=== PATIENT | male | born 1990 | race Caucasian/White ===

== ENCOUNTER 2020-07-30 15:47 | Outpatient (REF) | payer OTHER, MEDICAID, SELFPAY ==
--- NOTE | 2020-07-30 | US_ITS ---
EXAMINATION: US PELVIS, LIMITED/FOLLOW UP CLINICAL INFORMATION: Localized enlarged bilateral groin lymph nodes. COMPARISON: None TECHNIQUE: Limited imaging through bilateral groin was performed. FINDINGS: There are bilateral lymph nodes. Right groin lymph nodes measure 1.8 x 0.7 x 2.5 cm, 1.9 x 0.7 x 1.1 cm and 1.2 x 0.5 x 0.7 cm. A normal echogenic medulla and a normal-appearing cortex. Left groin lymph nodes measure 1.7 x 0.8 x 2.3 cm and 3.5 x 1.1 x 2.2 cm. There is normal echogenic medulla with normal-appearing cortex. US/US pelvic limited IMPRESSION: Bilateral groin lymph nodes which have benign characteristics on ultrasound. A follow up in 3-6 months can be performed.
== END 2020-07-30 15:48 | disposition home or self-care (01) ==
LOC: HO.US 15:47
PROVIDERS: Visit Provider Family Medicine
DX: R59.0 Localized enlarged lymph nodes (principal)
CPT/HCPCS: 76857

== ENCOUNTER → 2020-08-15 15:18 | Outpatient (BNVA) | payer OTHER, MEDICAID, SELFPAY | PROVIDERS: PCP Family Medicine; Visit Provider Surgery | DX: R59.0 Localized enlarged lymph nodes (principal) | CPT/HCPCS: 99202 ==

== ENCOUNTER 2020-08-27 06:22 | Day surgery (SDC) | payer OTHER, SELFPAY ==
--- NOTE | 2020-08-24 09:57 | HO.ANESPROP2 ---
Documented by User: Yasmeen Sharp 08/24/20 09:59 HPI - Anesthesia Eval Consult details Narrative: 30yo M for Lymph Node Dissection,excision left inguinal [facility] Past Medical History Medical History Elevated liver enzymes Migraines Surgical History Surgical History History of appendectomy Social History Social History Alcohol intake: former Smoking Status: Never smoker Use of substances other than those prescribed or required for medical reasons: No Advance Directives: No Advance Directives Information Provided: Yes Meds Allergies Allergy/AdvReac Type Severity Reaction Status Date / Time No Known Allergies Allergy Verified 08/15/20 16:29 Home Medications Medication Instructions Recorded Confirmed Type topiramate 1 tab PO DAILY 08/27/20 08/27/20 History Exam Exam Date and Time: August 24, 2020 0957 Assessment and Plan Assessment Anesthesia Assessment: Chart Reviewed Documented by User: Brenda Owen 08/27/20 08:11 PMFSH Past Medical History Medical History Elevated liver enzymes Migraines Family History Family history of problems with anesthesia: No Surgical History Surgical History History of appendectomy History of Problems with Anesthesia: No Social History Social History Alcohol intake: former Smoking Status: Never smoker Use of substances other than those prescribed or required for medical reasons: No Advance Directives: No Advance Directives Information Provided: Yes Meds Allergies Allergy/AdvReac Type Severity Reaction Status Date / Time No Known Allergies Allergy Verified 08/15/20 16:29 Home Medications Medication Instructions Recorded Confirmed Type topiramate 1 tab PO DAILY 08/27/20 08/27/20 History Exam Height,Weight and Vital Signs: Vital Signs Temp Pulse Resp BP Pulse Ox 08/27/20 06:43 97.9 F 71 20 139/84 99 Airway Mallampati Class: II TM Dist: >3cm Neck ROM: Full Loose/Missing/Broken Teeth: No Heart: RRR ?Systolic murmur Lungs: CTAB Assessment and Plan Assessment Anesthesia Assessment: Anesthesia Plan Discussed and Chart Reviewed Final Anesthetic Review NPO: Yes ASA Class: II Final Preanesthetic Review: No Changes in Pt Med Stat, Meds/Allgs Chart Reviewed, Consent Obtained/Reviewed and Anes Risks/Benef Reviewed Patient Risk: Low Procedure Risk: Low Assessment/Block/Sedation in SS: Assess/Block/Sedation-SS Anesthetic Plan Anesthetic Plan: GA (Patient preference) Disposition: Standard PACU Documented by User: Jorge Payton CRNA 08/27/20 08:09 PMFSH Past Medical History Medical History Elevated liver enzymes Migraines Surgical History Surgical History History of appendectomy Social History Social History Alcohol intake: former Smoking Status: Never smoker Use of substances other than those prescribed or required for medical reasons: No Advance Directives: No Advance Directives Information Provided: Yes Meds Allergies Allergy/AdvReac Type Severity Reaction Status Date / Time No Known Allergies Allergy Verified 08/15/20 16:29 Home Medications Medication Instructions Recorded Confirmed Type topiramate 1 tab PO DAILY 08/27/20 08/27/20 History Assessment and Plan Assessment Anesthesia Assessment: Anesthesia Plan Discussed and Chart Reviewed Final Anesthetic Review NPO: Yes ASA Class: II Final Preanesthetic Review: No Changes in Pt Med Stat, Meds/Allgs Chart Reviewed, Consent Obtained/Reviewed and Anes Risks/Benef Reviewed Patient Risk: Low Procedure Risk: Low Anesthetic Plan Anesthetic Plan: GA Disposition: Standard PACU
[2020-08-27] VITALS (7 sets, daily range): BP systolic 106–139; BP diastolic 67–84; PULSE 70–81; RESP 16–20; TEMP 36.5–36.6; O2SAT 97–99; BMI 29.0
[2020-08-27] MEDS: ceFAZolin Sodium/Dextrose,Iso 2 GM/50 ML PIGGYBACK IV (07:00)
[2020-08-27] MEDS: Lactated Ringers 1,000 ML 100 ML IVCONT (07:00)
--- NOTE | 2020-08-27 07:31 | MHC.SHP ---
Pre-Procedural Eval Section A The patient is an INPATIENT: No Changes since office visit: Yes Patient answered all questions; No Cold of Flu in the past 2 weeks, No New Medical Problems and No Changes in Medication The History & Physical has been completed within 30 days and I have reviewed it.: Yes Section B Chief Complaint: lymphadenopathy inguinal Allergies: Allergies Allergy/AdvReac Type Severity Reaction Status Date / Time No Known Allergies Allergy Verified 08/15/20 16:29 Plan Diagnosis/Plan: Unchanged I have reviewed the history and physical and performed a pertinent physical examination on my patient. No changes have occurred unless specified.
--- NOTE | 2020-08-27 08:42 | PM.OP ---
Brief Operative Note Date of Service: 08/27/20 Pre-op diagnosis: Inguinal lymphadenopathu Post-op diagnosis: same Procedure: Left inguinal lymph node biopsy Implants: none Surgeon: Solomon Pinzon MD Anesthesia: GLMA Direct Marketing Coordinator: Nel Henry Estimated blood loss (mL): 5 Pathology: other (left inguinal lymph node) Condition: stable Disposition: PACU
--- NOTE | 2020-08-27 08:43 | P.OP_ITS ---
Operative Note Operative Note Date of Service: 08/27/20 Narrative: Preoperative diagnosis: Inguinal lymphadenopathy Postoperative diagnosis: same Procedure: Left Inguinal Lymph node Excision Surgeon: Solomon Pinzon MD Drywall Stripper: Nel Henry PA-C Anesthesia: General Indications for procedure: 30-year-old male patient presenting with bilateral inguinal lymphadenopathy of 1 month duration. Lymph nodes appear to be increasing in size over this time. Ultrasound of the pelvis indicated bilateral inguinal lymphadenopathy the largest being on the left side. Operative findings: Patient was found to have multiple enlarged lymph nodes in the left inguinal region. Specimen: Left inguinal lymph node EBL: 5 mL Condition: stable Procedure details: Patient was brought to the OR placed in a supine position. After administering general anesthesia the patient's inguinal region was prepped with ChloraPrep and draped in a sterile fashion. A surgical time-out was called the consent confirmed. Patient received preoperative antibiotics and Venodyne boots were in place. Local anesthesia consisting of 0.75% Sensorcaine was infiltrated in the left inguinal region. A 2 cm incision was made directly over the palpable lymph node carried out through subcutaneous tissue. A combination of sharp and blunt dissection was then used to dissect around the enlarged lymph node. Electrocautery was used to dissect lymphatic vessels. Feeding vessels were also ligated with 3-0 Polysorb suture. With the nose completely excised it was sent to pathology for further examination. Wounds were then checked for hemostasis well at cautery. Wounds were then irrigated with saline solution and suctioned dry. Deep fascial tissue was closed using interrupted 3 0 Polysorb sutures. Dermis was reapproximated using interrupted 3-0 Polysorb sutures. Skin was then closed using a running subcuticular 4 0 Polysorb suture. Steri- Strips 2 x 2 gauze and Tegaderm were then applied. The patient tolerated the procedure well. Sponge, instrument, needle counts reported as correct. Patient was transferred to PACU in stable condition.
--- NOTE | 2020-08-27 10:02 | HO.POSTANES ---
Post Anesthesia Evaluation Post Anesthesia Evaluation Vital Signs: Vital Signs Temp Pulse Resp BP Pulse Ox 08/27/20 09:30 97.7 F 78 18 124/77 99 08/27/20 09:15 77 18 110/67 99 08/27/20 09:00 70 18 126/75 97 08/27/20 08:55 71 16 106/72 99 08/27/20 08:50 79 18 124/76 98 08/27/20 08:45 97.7 F 81 16 129/83 98 08/27/20 06:43 97.9 F 71 20 139/84 99 Anesthesia: General LMA Mental Status: Awake Pain Control: Satisfactory Nausea/Vomiting: None Hydration: Adequate Anesthesia-Related Issues: No Anes. Related Issues
== END 2020-08-27 23:59 | disposition home or self-care (01) ==
PROVIDERS: PCP Family Medicine; Visit Provider Surgery
PROC: (CPT 38531; principal; 2020-08-27 08:00)
DX: R59.0 Localized enlarged lymph nodes (principal); R74.8 Abnormal levels of other serum enzymes
CPT/HCPCS: 38531; 36415; 88305; 88341; 88342; 88365; J0690; J1100; J2250; J2405; J3010

== ENCOUNTER → 2020-09-04 14:00 | Outpatient (BNVA) | payer OTHER, SELFPAY | PROVIDERS: PCP Family Medicine; Visit Provider Surgery | DX: R59.0 Localized enlarged lymph nodes (principal) | CPT/HCPCS: 99212 ==

== ENCOUNTER 2020-09-05 09:35 | Outpatient (REF) | payer OTHER, SELFPAY ==
[2020-09-05 09:50] LABS: MANUAL DIFF FLAG NO
[2020-09-05 09:54] LABS: Basophils Absolute Auto 0.1 X10*3/uL (0.0-0.2); Basophils Percent Auto 0.7 % (0-2); Eosinophils Absolute Auto 0.3 X10*3/uL (0.0-0.4); Hematocrit 44.7 % (42-52); Hemoglobin 15.1 g/dl (14.0-18.0); Imm Gran Abs Auto 0.13 X10*3/uL (0.00-0.03); Imm Gran Pct Auto 1.3 % (0.0-0.4); Lymphocytes Absolute Auto 2.7 X10*3/uL (1.2-4.9); Lymphocytes Percent Auto 27.4 % (20-40); Mean Corpuscular HGB Conc 33.8 g/dl (31.0-36.0); Mean Corpuscular Hemoglobin 28.5 pg (27.0-33.0); Mean Corpuscular Volume 84.5 fL (80-98); Mean Platelet Volume 9.7 fL (9.4-12.4); Monocytes Absolute Auto 1.1 X10*3/uL (0.1-1.2); Monocytes Percent Auto 11.4 % (2-11); Neutrophils Absolute Auto 5.6 X10*3/uL (2.0-8.3); Neutrophils Percent Auto 56.2 % (45-73); Platelet Count 307 X10*3/uL (160-400); Red Blood Count 5.29 X10*6/uL (4.60-5.80); Red Cell Distribution Width 12.9 % (11.0-16.0)
[2020-09-05 10:22] LABS: Alanine Aminotransferase 45 U/L (0-40); Albumin Level 4.4 g/dL (3.5-5.0); Alkaline Phosphatase 116 U/L (39-117); Anion Gap 13 (12-20); Aspartate Amino Transferase 23 U/L (5-37); Bilirubin Direct 0.2 mg/dL (0.0-0.5); Bilirubin Total 0.6 mg/dL (0.0-1.0); Blood Urea Nitrogen 15 mg/dL (9-16); Carbon Dioxide 21 mmol/L (22-29); Chloride 109 mmol/L (96-108); Cholesterol 170 mg/dL; Estimated Glomerular Filt Rate > 60; Glucose Random 97 mg/dL (60-115); HDL Cholesterol 35 mg/dL; LDL Cholesterol Calculated 100 mg/dl; Potassium 4.1 mmol/l (3.3-5.1); Sodium 139 mmol/L (135-145); Total Protein 6.9 g/dL (6.5-8.0); Triglycerides 179 mg/dL
== END 2020-09-05 09:36 | disposition home or self-care (01) ==
LOC: HO.LAB 09:35
PROVIDERS: PCP Family Medicine; Visit Provider Family Medicine
DX: E78.5 Hyperlipidemia, unspecified (principal); R59.9 Enlarged lymph nodes, unspecified; R79.89 Other specified abnormal findings of blood chemistry
CPT/HCPCS: 36415; 80048; 80061; 80076; 85025

== ENCOUNTER → 2021-05-16 10:23 | Outpatient (BNVA) | payer OTHER, SELFPAY | PROVIDERS: Visit Provider Orthopaedic Surgery | DX: M25.561 Pain in right knee (principal); M25.562 Pain in left knee | CPT/HCPCS: 99202 ==

== ENCOUNTER 2021-07-03 18:47 | Emergency (ER) | payer OTHER, SELFPAY ==
[2021-07-03 18:56] VITALS: BP 137/90; PULSE 106; RESP 18; TEMP 37.2; O2SAT 99; BMI 28.2
[2021-07-03 19:20] LABS: IDNOW Serial# 9DD0AD1C; Strep A Nucleic Acid Negative (Negative)
[2021-07-03 19:22] LABS: COVID-19 Test Negative (Negative)
--- NOTE | 2021-07-03 20:15 | ED.URI ---
HPI - URI/Sore Throat General Chief Complaint: Upper Respiratory Symptoms Stated Complaint: Sore throat, hand pains Time Seen by Provider: 07/03/21 20:10 Source: patient Mode of arrival: ambulatory Limitations: no limitations History of Present Illness HPI Narrative: 31 y/o male presenting with sore throat for the last 2 days. He reports pain with swallowing. He also reports wrist pain bilaterally. He reports a history of joint swelling and pain in association with strep throat about 5 years ago that required hospitalization, IV steroids and IV antibiotics. He reports he has been followed by [facility] infectious disease and has required intramuscular penicillin every month for the last 5 years. His last dose of IM penicillin was in April of this year. He has not had any fever, chills, nausea, vomiting, cough, shortness of breath. He has been able to eat and drink normally however it hurts. He has not called his infectious disease doctor with his complaints. 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) Onset (ago): day(s) (2) Consistency: constant Severity: moderate Pain scale (0-10): 6 Able to tolerate fluids by mouth: Yes Exacerbating factors: swallowing Relieving factors: nothing Associated symptoms: other (Arthralgias) Treatments prior to arrival: none Related Data Home Medications Medication Instructions Recorded Confirmed acetaminophen 650 mg 1 tab PO Q8H PRN 11/05/20 06/11/21 tablet,extended release (Mapap Arthritis Pain) ergocalciferol (vitamin D2) 1,250 1 cap PO QWEEK 11/05/20 06/11/21 mcg (50,000 unit) capsule amitriptyline 25 mg tablet 1 tab PO BEDTIME 06/11/21 06/11/21 melatonin 5 mg tablet 5 mg PO BEDTIME PRN 06/11/21 06/11/21 Previous Rx's Medication Instructions Recorded prednisone 10 mg tablets in a dose 10 mg PO DAILY #48 ea 07/03/21 pack Allergies Allergy/AdvReac Type Severity Reaction Status Date / Time No Known Allergies Allergy Verified 06/11/21 10:01 Review of Systems Review of Systems: Constitutional: No Fever, No Chills ENT/Mouth: + sore throat, No Rhinorrhea, No Swallowing Difficulty, +Pain with swallowing Cardiovascular: No Chest Pain, No SOB, No Orthopnea, No Edema Respiratory: No Cough, No Sputum, No Wheezing, No dyspnea Gastrointestinal: No Nausea, No Vomiting, No Diarrhea, No abdominal Pain Musculoskeletal: + joint pain, No Myalgias Skin: No Skin Lesions, No rash Neuro: No Weakness, No Numbness, No Dizziness, No Headache Heme/Lymph: No Bruising, No Lymphadenopathy PMFSH Past Medical History Medical History (Updated 07/03/21 @ 20:50 by TOY Warren) Chronic GERD Dyslipidemia Elevated liver enzymes Genital herpes Migraines Rheumatic fever Rheumatic fever with cardiac involvement Surgical History History of appendectomy Hx of lymph node excision Family History Family History Maternal Grandfather Cancer Maternal Grandmother Diabetes HTN (hypertension) Social History Social History Alcohol intake: former Advance Directives: No Advance Directives Information Provided: No Current occupational status: employed 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 Oriented X3. No acute distress. Eyes: Pupils equal, round and reactive to light. ENT: Pharynx with moderate to severe posterior pharyngeal erythema, mild bilateral tonsillar enlargement without exudate. Uvula is midline. Normal voice handling secretions normally. Normal tympanic membranes bilaterally. Neck: Normal inspection. Right-sided submandibular lymphadenopathy palpable. Tender. Trachea midline. CVS: Normal heart rate and rhythm. Pulses normal. Respiratory: No respiratory distress. Breath sounds normal. Skin: Skin warm and dry. Normal skin color. Normal skin turgor. No rashes. Extremities: No lower extremity edema. Normal inspection of the upper extremities, normal inspection of the wrist bilaterally with no tenderness or swelling noted. No erythema or warmth. Neuro: Oriented X 3. Grossly normal, nonfocal Course Course Course Narrative: 31-year-old male with a history of what sounds like post streptococcal reactive arthritis requiring intramuscular PCN x5 years coming in today with sore throat and bilateral wrist pain. His throat is erythematous and inflamed. No tonsillar exudates with uvula midline and no evidence of peritonsillar abscess. His strep test was negative. His COVID-19 test was negative. Given his extensive history infectious Disease Dr. Carson was contacted - she is recommending IM PCM 2.4 million units now and d/c with oral steroids. He will follow up with his infectious disease doctor on Thursday. Stable for d/c home with close outpatient follow up. Consultations Consultation #1: ID - Dr. Carson MDM - URI/Sore Throat Lab Data Labs: Lab Results 07/03/21 07/03/21 Range/Units 19:02 19:02 COVID-19 (TATA) Negative (Negative) COVID-19 Clin Com See Note S. pyogenes GrpA SHANON Negative (Negative) Critical Care Time Critical Care Time Critical Care Time: No Discharge Plan Discharge Clinical Impression: Pharyngitis Qualifiers: Pharyngitis/tonsillitis etiology: unspecified etiology Qualified Code(s): J02.9 - Acute pharyngitis, unspecified Patient Disposition: Home, Self-Care Instructions: Pharyngitis (ED) Additional Instructions: You were negative for COVID-19 and strep throat today. Given her history your given intramuscular doses of penicillin. Your also given a dose of oral prednisone in the emergency room, additional steroids were sent to your pharmacy, please take as directed. Follow-up with your infectious disease doctor on Thursday. Recommend [id number] Chloraseptic spray or septic all lozenges as needed for sore throat. Use warm saltwater gargles several times per day. Rest and stay hydrated, drink plenty of water. If you develop new or worsening symptoms call 911 or come back to the ER for further evaluation. Prescriptions: New prednisone 10 mg tablets,dose pack 10 mg PO DAILY Qty: 48 RF: 0 No Action acetaminophen [Mapap Arthritis Pain] 650 mg tablet extended release 1 tab PO Q8H PRN (Reason: fever) RF: 0 ergocalciferol (vitamin D2) 1,250 mcg (50,000 unit) capsule 1 cap PO QWEEK RF: 0 amitriptyline 25 mg tablet 1 tab PO BEDTIME RF: 0 melatonin 5 mg Tablet 5 mg PO BEDTIME PRN (Reason: Insomnia) RF: 0
[2021-07-03] MEDS: predniSONE 10 MG TABLET 50 MG PO (21:18)
[2021-07-03] MEDS: Penicillin G Benzathine 2,400,000 UNIT/4 ML SYRINGE 2400000 UNIT IM (21:19)
[2021-07-03 21:30] VITALS: BP 129/71; PULSE 97; RESP 18; TEMP 37.2; O2SAT 99
== END 2021-07-03 21:33 | disposition home or self-care (01) ==
PROVIDERS: Emergency Provider Student in an Organized Health Care Education/Training Program; PCP Family Medicine
DX: J02.9 Acute pharyngitis, unspecified (principal); Z20.822 Contact with and (suspected) exposure to COVID-19; M25.532 Pain in left wrist; M25.531 Pain in right wrist
CPT/HCPCS: 36415; 87635; 87651; 99284; J0561

== ENCOUNTER 2021-08-17 21:02 | Emergency (ER) | payer OTHER, SELFPAY ==
[2021-08-17 21:33] VITALS: BP 132/88; PULSE 98; RESP 18; TEMP 37.5; O2SAT 100; BMI 29.5
[2021-08-17 22:05] LABS: COVID-19 Test Positive (Negative)
[2021-08-17 22:29] VITALS: BP 136/94; PULSE 90; RESP 16; O2SAT 98
--- NOTE | 2021-08-17 22:44 | ED.GENADULT ---
HPI - General Adult General Chief complaint: General Medical Stated complaint: swollen glands ,dry cough Time Seen by Provider: 08/17/21 22:44 Source: patient Mode of arrival: ambulatory Limitations: no limitations History of Present Illness HPI narrative: 31-year-old male came in for evaluation of dry coughing, scratchy throat, subjective fever, generalized body ache. Patient received 2 Moderna vaccination in the past, no definitive exposure to sick contact. Patient tested positive in the emergency department for COVID. Related Data Home Medications Medication Instructions Recorded Confirmed acetaminophen 650 mg 1 tab PO Q8H PRN 11/05/20 06/11/21 tablet,extended release (Mapap Arthritis Pain) ergocalciferol (vitamin D2) 1,250 1 cap PO QWEEK 11/05/20 06/11/21 mcg (50,000 unit) capsule amitriptyline 25 mg tablet 1 tab PO BEDTIME 06/11/21 06/11/21 melatonin 5 mg tablet 5 mg PO BEDTIME PRN 06/11/21 06/11/21 Previous Rx's Medication Instructions Recorded prednisone 10 mg tablets in a dose 10 mg PO DAILY #48 ea 07/03/21 pack Allergies Allergy/AdvReac Type Severity Reaction Status Date / Time No Known Allergies Allergy Verified 08/17/21 21:33 Review of Systems Review of Systems: All other systems are reviewed and are negative Constitutional: Reports as per HPI and Reports no additional constitutional complaints Eyes: Reports as per HPI and Reports no additional eye complaints Reports system reviewed and no additional complaints, except as documented Cardiovascular: Reports as per HPI and Reports no additional cardiovascular complaints Respiratory: Reports as per HPI and Reports no additional respiratory complaints Gastrointestinal: Reports as per HPI and Reports no additional gastrointestinal complaints Genitourinary: Reports no additional female genitourinary complaints Musculoskeletal: Reports no additional musculoskeletal complaints Skin/Breast: Reports system reviewed and no additional complaints, except as docu Psychiatric: Reports no additional psychiatric complaints Endocrine: Reports no additional endocrine complaints Hematologic/Lymphatic: Reports no additional hematologic/lymphatic complaints Allergic/Immunologic: Reports no additional allergic/immunologic complaints Reports system reviewed and no additional complaints, except as documented and Reports Abnormal speech present [facility] Past Medical History Medical History Chronic GERD Dyslipidemia Elevated liver enzymes Genital herpes Migraines Rheumatic fever Rheumatic fever with cardiac involvement Surgical History History of appendectomy Hx of lymph node excision Family History Family History Maternal Grandfather Cancer Maternal Grandmother Diabetes HTN (hypertension) Social History Social History Alcohol intake: former Advance Directives: No Advance Directives Information Provided: No Current occupational status: employed 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 Blood pressure normal. Heart rate normal. Respiration rate normal. Temperature normal. Oxygen saturation normal. Appearance: Alert. Oriented X3. No acute distress. Head: Normal external exam. Normocephalic. Atraumatic. No Bran signs noted. No raccoon eyes noted Eyes: PERRLA. EOMI. Conjunctiva and sclera normal. Eyelids normal. ENT: TM's Normal. Pharynx normal. Uvula midline. Moist mucous membranes. No trismus noted. No drooling noted. No muffled voice noted. Neck: Normal inspection. Neck supple. FROM. No adenopathy. Thyroid Normal. No meningeal signs. No neck mass noted. CVS: Normal heart rate and rhythm. Heart sound normal. No murmurs noted. Pulses normal throughout. Respiratory: No respiratory distress. Painless inspiration. Breath sounds normal. No wheezes/rales/rhonchi noted. Chest nontender. No accessory muscle usage noted or decreased air movement noted. Abdomen: Soft and nontender. Bowel sounds normal in all 4 quadrants. No distention noted. No organomegaly noted. No visible injury noted. Back: No CVA tenderness. Full range of motion noted. Skin: Skin warm and dry. Normal skin color. Normal skin turgor. No rashes/lesions/lacerations noted. Extremities: No lower extremity edema. Extremities exhibit normal range of motion. Extremities nontender. Neuro: Oriented X 3. Cranial nerve exam: II-XII are grossly intact No motor deficit. No sensory deficit. Reflexes normal. Course Course Course Narrative: Assessment and plan. 31-year-old male otherwise healthy came in was COVID symptoms and patient tested positive for COVID, continue self quarantine for another 10 days, continue with facemask, continuous social distancing, and frequent hand washing. Medical Decision Making Lab Data Lab results reviewed: Yes I reviewed the patient's lab results. Labs: Lab Results 08/17/21 Range/Units 21:40 COVID-19 (TAAT) Positive A (Negative) COVID-19 Clin Com See Note Discharge Plan Discharge Clinical Impression: COVID-19 virus infection Patient Disposition: Home, Self-Care Instructions: COVID-19 (Coronavirus Disease 2019) (ED) Additional Instructions: Continue self quarantine for 10 days, frequent handwashing, continue wearing face mask at all times, keep was social distancing. Prescriptions: No Action acetaminophen [Mapap Arthritis Pain] 650 mg tablet extended release 1 tab PO Q8H PRN (Reason: fever) RF: 0 ergocalciferol (vitamin D2) 1,250 mcg (50,000 unit) capsule 1 cap PO QWEEK RF: 0 amitriptyline 25 mg tablet 1 tab PO BEDTIME RF: 0 melatonin 5 mg Tablet 5 mg PO BEDTIME PRN (Reason: Insomnia) RF: 0 prednisone 10 mg tablets,dose pack 10 mg PO DAILY Qty: 48 RF: 0 Stand Alone Forms: Work/School Release
== END 2021-08-17 23:22 | disposition home or self-care (01) ==
PROVIDERS: Emergency Provider Emergency Medicine; PCP Family Medicine
DX: U07.1 COVID-19 (principal)
CPT/HCPCS: 87635; 99283; 99284

== ENCOUNTER 2021-09-16 18:41 | Emergency (ER) | payer OTHER, SELFPAY ==
[2021-09-16 19:31] VITALS: BP 156/94; PULSE 110; RESP 19; TEMP 37.2; O2SAT 99; BMI 29.0
[2021-09-16 20:30] LABS: COVID-19 Test Negative (Negative); IDNOW Serial# 55D5AD1C
[2021-09-16 22:05] VITALS: BP 157/92; PULSE 108; RESP 18; O2SAT 100
[2021-09-16] MEDS: Ibuprofen 800 MG TABLET PO (22:14)
--- NOTE | 2021-09-16 22:16 | ED.GENADULT ---
HPI - General Adult General Chief complaint: General Medical Stated complaint: continuous headache, runny nose, cough Time Seen by Provider: 09/16/21 22:08 Source: patient Mode of arrival: ambulatory Limitations: no limitations History of Present Illness HPI narrative: 31-YEAR-OLD MALE PRESENTS TO ED FOR COUGHING, HEADACHE, RUNNY NOSE FOR THE PAST 3 DAYS. PATIENT DENIES ANY CHEST PAIN OR SHORTNESS OF BREATH. PATIENT STATES RECEIVED 2 DOSES MODERNA VACCINE BUT NO BOOSTER. PATIENT STATES HE MIGHT HAVE EXPOSED TO COVID AT WORK. PATIENT STATES NO ONE ELSE AT HOME SICK. Related Data Home Medications Medication Instructions Recorded Confirmed acetaminophen 650 mg 1 tab PO Q8H PRN 11/05/20 06/11/21 tablet,extended release (Mapap Arthritis Pain) ergocalciferol (vitamin D2) 1,250 1 cap PO QWEEK 11/05/20 06/11/21 mcg (50,000 unit) capsule amitriptyline 25 mg tablet 1 tab PO BEDTIME 06/11/21 06/11/21 melatonin 5 mg tablet 5 mg PO BEDTIME PRN 06/11/21 06/11/21 Previous Rx's Medication Instructions Recorded prednisone 10 mg tablets in a dose 10 mg PO DAILY #48 ea 07/03/21 pack Allergies Allergy/AdvReac Type Severity Reaction Status Date / Time No Known Allergies Allergy Verified 09/16/21 19:31 Review of Systems Review of Systems: COUGHING, HEADACHE, RUNNY NOSE Yes all other systems are reviewed and are negative PMFSH Past Medical History Medical History Chronic GERD Dyslipidemia Elevated liver enzymes Genital herpes Migraines Rheumatic fever Rheumatic fever with cardiac involvement Surgical History History of appendectomy Hx of lymph node excision Family History Family History Maternal Grandfather Cancer Maternal Grandmother Diabetes HTN (hypertension) Social History Social History Alcohol intake: former Advance Directives: No Advance Directives Information Provided: Yes Current occupational status: employed 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 Physical Exam Vital Signs: Vital Signs: Last Vital Signs Temp 98.9 F 09/16/21 19:31 Pulse 108 H 09/16/21 22:05 Resp 18 09/16/21 22:05 BP 157/92 H 09/16/21 22:05 Pulse Ox 100 09/16/21 22:05 BMI result Body Mass Index 29.0 Const: General: cooperative, healthy appearing, comfortable, no acute distress, well developed, alert, awake and Physically active Orientation/consciousness: patient oriented x3 HENMT: Head: Yes normal to inspection, Yes No palpable skull fracture present, Yes normocephalic, Yes atraumatic and No abrasion Eyes: General: appearance normal, both eyes and all related structures Neck: Neck: Yes normal visual inspection, Yes full ROM, Yes no lymphadenopathy, Yes no meningeal signs, Yes trachea midline, Yes supple, No anterior neck swelling and No tender Chest: Chest palpation & inspection: normal inspection of the chest and normal palpation of entire chest wall Resp: Effort & Inspection: normal respiratory effort and able to speak in complete sentences Auscultation: clear to auscultation bilaterally Cardio: Jugular venous distension: no JVD Heart sounds: S1 normal heart sound present and S2 normal heart sound present GI: Inspection: Yes normal to inspection and No abdominal wall ecchymosis Palpation (GI): Soft to palpation, not firm, nontender, no guarding and not rigid : General: No CVA tenderness and Yes no CVA tenderness Back/Spine/Pelvis: Back: no CVA tenderness, No CVA tenderness and No back tenderness Skin: General skin exam: no rashes or lesions noted and elasticity normal Neuro: General: patient oriented x3, gait normal, no meningeal signs and CN's II-XI intact bilaterally Cranial nerves: Yes CN's II-XII intact bilaterally Extrem: General: Yes normal to inspection and Yes full ROM Psych: Appearance: grossly normal, well kempt and not disheveled Course Course Course Narrative: PATIENT IS SWABBED FOR COVID. Reevaluation(s) Reevaluation #1: NOT SUSPECTING MENINGITIS. SYMPTOMS URI. COVID NEGATIVE. THIS MAY BE FALSE NEGATIVE. PATIENT INFORMED TO GET RETESTED IN 5 DAYS. Time: 22:42 Medical Decision Making [facility] Narrative Medical decision making narrative: URI SYMPTOMS Lab Data Labs: Lab Results 09/16/21 Range/Units 19:35 COVID-19 ([facility]) Negative (Negative) COVID-19 Clin Com See Note Discharge Plan Discharge Clinical Impression: URI (upper respiratory infection), Acute viral syndrome Patient Disposition: Home, Self-Care Instructions: Upper Respiratory Infection (DC), Viral Syndrome (ED) Additional Instructions: YOUR COVID SWAB CAME BACK NEGATIVE. THIS MAY BE A FALSE-NEGATIVE AND YOU WILL NEED TO BE RETESTED IN 5 DAYS. RETURN TO THE ED IMMEDIATELY FOR DIZZINESS, NECK STIFFNESS, INTRACTABLE FEVER, NAUSEA, VOMITING, WEAKNESS, CHILLS, ABDOMINAL PAIN, CHEST PAIN, SHORTNESS OF BREATH, OR ANY OTHER CONCERNING SYMPTOMS. YOUR BLOOD PRESSURE WAS SLIGHTLLY ELEVATED DURING THE ED VISIT YOU SHOULD FOLLOW-UP WITH PRIMARY CARE PROVIDER IN REGARDS TO YOUR BLOOD PRESSURE. Prescriptions: No Action acetaminophen [Mapap Arthritis Pain] 650 mg tablet extended release 1 tab PO Q8H PRN (Reason: fever) 0RF ergocalciferol (vitamin D2) 1,250 mcg (50,000 unit) capsule 1 cap PO QWEEK 0RF amitriptyline 25 mg tablet 1 tab PO BEDTIME 0RF melatonin 5 mg Tablet 5 mg PO BEDTIME PRN (Reason: Insomnia) 0RF prednisone 10 mg tablets,dose pack 10 mg PO DAILY Qty: 48 0RF Rx Instructions: Take 4 tabs x4 days, then 3 tabs x4 days, then 2 tabs x4 days, then 1 tab x4 days. Discard remainder Stand Alone Forms: Work/School Release Interventions: ED Discharge Assessment Last Done: 09/16/21 23:00 Discharge Date/Time: 09/16/21 23:00 Print Language: Kiswahili
== END 2021-09-16 23:00 | disposition home or self-care (01) ==
PROVIDERS: Emergency Provider Internal Medicine
DX: J06.9 Acute upper respiratory infection, unspecified (principal); B34.9 Viral infection, unspecified; Z20.822 Contact with and (suspected) exposure to COVID-19; R51.9 Headache, unspecified
CPT/HCPCS: 87635; 99283; 99284

== ENCOUNTER 2022-08-25 15:54 | Emergency (ER) | payer OTHER, SELFPAY ==
--- NOTE | 2022-08-25 16:26 | ED.GENADULT ---
HPI - General Adult General Chief complaint: Upper Respiratory Symptoms <TOY Huerta Last Filed: 08/25/22 19:47> Stated complaint: fever,dizziness,cough <TOY Huerta Last Filed: 08/25/22 19:47> Time Seen by Provider: 08/25/22 16:50 <TOY Huerta Last Filed: 08/25/22 19:47> Source: patient <TOY Ellington Last Filed: 08/26/22 08:30> Mode of arrival: ambulatory <TOY Ellington Last Filed: 08/26/22 08:30> Limitations: no limitations <TOY Ellington Last Filed: 08/26/22 08:30> History of Present Illness HPI narrative: Patient is a 32 year old assigned male at with no reported medical history presenting to the emergency department today with a sore throat. Patient states that there is a sick child at home and ever since he has had a sore throat. Patient denies any dizziness, lightheadedness, abdominal pain, nausea, vomiting, fever, chills, blurry vision, double vision, loss of vision, chest pain, difficulty breathing, shortness of breath, back pain, night sweats, pain with urination, increased urinary frequency, increased urinary urgency, blood in his urine or stool, syncope or a near syncopal episode, recent trauma or falls, bowel incontinence, bladder incontinence, bowel retention, bladder retention, or any other complaints at this time. <TOY Ellington - Last Filed: 08/26/22 08:30> Onset (ago): day(s) <TOY Ellington Last Filed: 08/26/22 08:30> Severity: mild <TOY Ellington Last Filed: 08/26/22 08:30> Severity scale (1-10): 2 <TOY Ellington Last Filed: 08/26/22 08:30> Pain Consistency: constant <TOY Ellington Last Filed: 08/26/22 08:30> Relieving factors: none <TOY Ellington Last Filed: 08/26/22 08:30> Exacerbating factors: none <TOY Ellington Last Filed: 08/26/22 08:30> Associated symptoms: denies other symptoms <TOY Ellnigton - Last Filed: 08/26/22 08:30> Treatments prior to arrival: none <TOY Ellington - Last Filed: 08/26/22 08:30> Related Data Home medications: Home Medications Medication Instructions Recorded Confirmed acetaminophen 650 mg 1 tab PO Q8H PRN fever 11/05/20 06/11/21 tablet,extended release (Mapap Arthritis Pain) ergocalciferol (vitamin D2) 1,250 1 cap PO QWEEK 11/05/20 06/11/21 mcg (50,000 unit) capsule amitriptyline 25 mg tablet 1 tab PO BEDTIME 06/11/21 06/11/21 melatonin 5 mg tablet 5 mg PO BEDTIME PRN Insomnia 06/11/21 06/11/21 Previous Rx's Medication Instructions Recorded prednisone 10 mg tablets in a dose 10 mg PO DAILY #48 ea 07/03/21 pack lidocaine HCl 2 % mucosal solution 1.2 ml PO BID PRN pain #100 mL 08/25/22 (Lidocaine Viscous) <TOY Huerta - Last Filed: 08/25/22 19:47> Allergies/adverse reactions: Allergies Allergy/AdvReac Type Severity Reaction Status Date / Time No Known Allergies Allergy Verified 09/16/21 19:31 <TOY Huerta - Last Filed: 08/25/22 19:47> Review of Systems Constitutional: Constitutional: Reports no additional constitutional complaints, Denies chills, Denies fever(s) and Denies night sweats <TOY Ellington - Last Filed: 08/26/22 08:30> Eyes: Eyes: Reports no additional eye complaints, Denies blurry vision, Denies change in vision, Denies diplopia, Denies eye discharge, Denies loss of vision and Denies eye pain <TOY Ellington - Last Filed: 08/26/22 08:30> ENT: Denies dizziness and Reports sore throat <TOY Ellington Last Filed: 08/26/22 08:30> Cardiovascular: Cardiovascular: Reports no additional cardiovascular complaints, Denies chest pain, Denies lightheadedness, Denies Loss of Consciousness and Denies dyspnea <TOY Ellington - Last Filed: 08/26/22 08:30> Respiratory: Respiratory: Reports no additional respiratory complaints and Denies dyspnea <TOY Ellington - Last Filed: 08/26/22 08:30> Gastrointestinal: Gastrointestinal: Reports no additional gastrointestinal complaints, Denies abdominal pain, Denies melena, Denies hematochezia, Denies change in bowel habits and Denies change in stool character <TOY Ellington - Last Filed: 08/26/22 08:30> Genitourinary: Genitourinary: Reports no additional male genitourinary complaints, Denies hematuria, Denies oliguria, Denies difficulty urinating, Denies dysuria, Denies urinary frequency, Denies urinary hesitancy, Denies urinary incontinence and Denies urinary urgency <TOY Ellington - Last Filed: 08/26/22 08:30> Musculoskeletal: Musculoskeletal: Reports no additional musculoskeletal complaints, Denies numbness and Denies tingling <TOY Ellington - Last Filed: 08/26/22 08:30> Neurologic: Denies dizziness, Denies loss of vision, Denies numbness and Denies tingling <TOY Ellington - Last Filed: 08/26/22 08:30> Psychiatric: Psychiatric: Reports no additional psychiatric complaints <TOY Ellington - Last Filed: 08/26/22 08:30> Endocrine: Endocrine: Reports no additional endocrine complaints <TOY Ellington - Last Filed: 08/26/22 08:30> Hematologic/Lymphatic: Hematologic/Lymphatic: Reports no additional hematologic/lymphatic complaints <TOY Ellington - Last Filed: 08/26/22 08:30> Allergic/Immunologic: Allergic/Immunologic: Reports no additional allergic/immunologic complaints <TOY Ellington - Last Filed: 08/26/22 08:30> PMFSH Past Medical History Attestation statement: The following information was validated with the patient. <TOY Ellington Last Filed: 08/26/22 08:30> Source: old records reviewed and nursing notes reviewed <TOY Ellington - Last Filed: 08/26/22 08:30> Medical History: Medical History Chronic GERD Dyslipidemia Elevated liver enzymes Genital herpes Migraines Rheumatic fever Rheumatic fever with cardiac involvement <TOY Huerta - Last Filed: 08/25/22 19:47> Surgical History: Surgical History History of appendectomy Hx of lymph node excision <TOY Huerta - Last Filed: 08/25/22 19:47> Family History Family History: Family History Maternal Grandfather Cancer Maternal Grandmother Diabetes HTN (hypertension) <TOY Huerta - Last Filed: 08/25/22 19:47> Social History Social History: Social History Alcohol intake: former Advance Directives: No Advance Directives Information Provided: No Current occupational status: employed 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 <TOY Huerta - Last Filed: 08/25/22 19:47> Physical Exam ED Vital Signs: Vital Signs - 24 hr 08/25/22 16:27 Temperature 98 F Pulse Rate 101 H Respiratory Rate 18 Blood Pressure 141/83 H Pulse Oximetry 97 Oxygen Delivery Method Room Air BMI result Body Mass Index 29.0 <TOY Huerta - Last Filed: 08/25/22 19:47> Vital Signs - 24 hr 08/25/22 16:27 Temperature 98 F Pulse Rate 101 H Respiratory Rate 18 Blood Pressure 141/83 H Pulse Oximetry 97 Oxygen Delivery Method Room Air BMI result Body Mass Index 29.0 <TOY Ellington - Last Filed: 08/26/22 08:30> Const General: cooperative, no acute distress, alert and awake <TOY Ellington - Last Filed: 08/26/22 08:30> Nutritional Appearance: well nourished <TOY Ellington Last Filed: 08/26/22 08:30> Orientation/consciousness: patient oriented x3 <TOY Ellington - Last Filed: 08/26/22 08:30> Limitations: no limitations <TOY Ellington Last Filed: 08/26/22 08:30> HENMT Head: Yes normal to inspection and Yes atraumatic <TOY Ellington Last Filed: 08/26/22 08:30> Ears: hearing grossly normal bilaterally and external ears normal <Milviaprasanth RodriguezTOY merrill - Last Filed: 08/26/22 08:30> General nose exam: Normal external nose present, no nasal discharge noted and no epistaxis <Milvia Edvin PA - Last Filed: 08/26/22 08:30> Face and sinus: Yes normal facial exam, No abrasion and No laceration <Milvia Pardo PA - Last Filed: 08/26/22 08:30> Mouth: Normal oral and palatal mucosa present, no drooling and no muffled voice <Milvia Pardo PA - Last Filed: 08/26/22 08:30> Throat: Yes posterior oropharynx abnormal (erythema) <Milvia Pardo PA - Last Filed: 08/26/22 08:30> Eyes General: appearance normal, both eyes and all related structures <TOY Ellington - Last Filed: 08/26/22 08:30> Periorbital: periorbital findings normal <Milvia Pardo PA - Last Filed: 08/26/22 08:30> Eyelids: Yes eyelids normal <Milvia Pardo PA - Last Filed: 08/26/22 08:30> Conjunctivae: conjunctivae normal <TOY Ellington - Last Filed: 08/26/22 08:30> Pupils: Equal, round and reactive pupils present <Milvia Pardo PA - Last Filed: 08/26/22 08:30> EOM: EOMs intact bilaterally <TOY Ellington - Last Filed: 08/26/22 08:30> Neck Neck: Yes normal visual inspection, Yes full ROM and Yes no lymphadenopathy <TOY Ellington - Last Filed: 08/26/22 08:30> Chest Chest palpation & inspection: normal inspection of the chest <TOY Ellington - Last Filed: 08/26/22 08:30> Resp Effort & Inspection: normal respiratory effort and able to speak in complete sentences <TOY Ellington - Last Filed: 08/26/22 08:30> Auscultation: clear to auscultation bilaterally <TOY Ellington - Last Filed: 08/26/22 08:30> Cardio Rate: regular rate <Milvia Rodriguezgarfield PA - Last Filed: 08/26/22 08:30> Rhythm: regular rhythm <Milvia PardoTOY - Last Filed: 08/26/22 08:30> GI Inspection: Yes normal to inspection <Milvia Pardo PA - Last Filed: 08/26/22 08:30> Neuro General: patient oriented x3 and moves all extremities <Milviaprasanth RodriguezTOY merrill - Last Filed: 08/26/22 08:30> Cranial nerves: Yes Equal, round and reactive pupils present <Milvia RodriguezTOY merrill - Last Filed: 08/26/22 08:30> Cognition (Neuro): normal cognition <Milvia RodriguezTOY merrill - Last Filed: 08/26/22 08:30> Motor exam (neuro): 5/5 motor strength present throughout <Milvia RodriguezTOY merrill - Last Filed: 08/26/22 08:30> Sensory Exam: Normal double simultaneous stimulation for sensation <Milvia Rodriguezgarfield PA - Last Filed: 08/26/22 08:30> Coordination: [id number] test normal <Milvia Rodriguezgarfield PA - Last Filed: 08/26/22 08:30> Extrem General: Yes normal to inspection, Yes full ROM and Yes capillary refill normal <Milvia RodriguezTOY merrill - Last Filed: 08/26/22 08:30> Psych Appearance: grossly normal <Milvia RodriguezTOY merrill - Last Filed: 08/26/22 08:30> Mental Status: mental status grossly normal <Milviaprasanth RodriguezTOY merrill - Last Filed: 08/26/22 08:30> Affect: normal affect <Milvia Rodriguezgarfield PA - Last Filed: 08/26/22 08:30> Attitude: cooperative <TOY Ellington - Last Filed: 08/26/22 08:30> Thought process: Normal thought process present <TOY Ellington - Last Filed: 08/26/22 08:30> Thought content: Normal thought content present <Milvia TOY Pardo - Last Filed: 08/26/22 08:30> Insight: Good insight present (Psych) <TOY Ellington - Last Filed: 08/26/22 08:30> Course Course Course Narrative: RME: fever, sore throat, nausea, and lightheadedness. Son was also sick. No neuro defecits on exam. SARS and strep ordered <TOY Huerta - Last Filed: 08/25/22 19:47> Medications Administered Discontinued Medications Generic Name Dose Route Start Last Admin Trade Name Freq PRN Reason Stop Dose Admin Lidocaine HCl 15 ml 08/25/22 17:45 08/25/22 18:02 Lidocaine Hcl Viscous 2 % 15 Ml Solution MUCOUS MEM 08/25/22 17:46 15 ml ONCE ONE Administration <TOY Huerta - Last Filed: 08/25/22 19:47> Medications Administered Discontinued Medications Generic Name Dose Route Start Last Admin Trade Name Freq PRN Reason Stop Dose Admin Lidocaine HCl 15 ml 08/25/22 17:45 08/25/22 18:02 Lidocaine Hcl Viscous 2 % 15 Ml Solution MUCOUS MEM 08/25/22 17:46 15 ml ONCE ONE Administration <TOY Ellington - Last Filed: 08/26/22 08:30> Medical Decision Making Medical Decision Making [facility] Narrative: Patient is a 32 year old assigned male at with no reported medical history presenting to the emergency department today with a sore throat. Patient's physical exam showed posterior oropharynx erythema but was otherwise unremarkable. Patient's COVID/Influenza/RSV and strep tests were negative. I explained my physical exam findings as well as all test results to the patient. I answered all questions asked by the patient. Patient received PO viscous lidocaine which he stated helped his symptoms significantly. I stressed the importance of the patient taking his medication as prescribed. I stressed the importance of the patient following up with his primary care provider. I stressed the importance of the patient returning to the emergency department immediately if his symptoms were to worsen or if he were to develop any dizziness, shortness of breath, difficulty breathing, chest pain, blurry vision, loss of vision, nausea, vomiting, abdominal pain, fever, chills, back pain, or any other complaints. Patient verbalized agreement and understanding with this treatment plan and discharge. <TOY Ellington - Last Filed: 08/26/22 08:30> Differential Diagnosis Differential Diagnoses: The differential diagnosis associated with the presentation includes <TOY Ellington Last Filed: 08/26/22 08:30> COVID-19, influenza, strep, RSV, viral pharyngitis <TOY Ellington - Last Filed: 08/26/22 08:30> Lab Data MDM Lab Attestation statement: I reviewed the patient's lab results. <TOY Ellington - Last Filed: 08/26/22 08:30> Labs: Lab Results 08/25/22 08/25/22 Range/Units 16:43 16:43 Influenza Type A (PCR) NEGATIVE (Negative) Influenza Type B (PCR) NEGATIVE (Negative) RSV RNA Qual (PCR) NEGATIVE (Negative) SARS-CoV-2 RNA (RT-PCR) NEGATIVE (Negative) S. pyogenes GrpA SHANON Negative (Negative) <TOY Huerta Last Filed: 08/25/22 19:47> Lab Results 08/25/22 08/25/22 Range/Units 16:43 16:43 Influenza Type A (PCR) NEGATIVE (Negative) Influenza Type B (PCR) NEGATIVE (Negative) RSV RNA Qual (PCR) NEGATIVE (Negative) SARS-CoV-2 RNA (RT-PCR) NEGATIVE (Negative) S. pyogenes GrpA SHANON Negative (Negative) <TOY Ellington - Last Filed: 08/26/22 08:30> Discharge Plan Discharge Clinical Impression: Pharyngitis <TOY Huerta Last Filed: 08/25/22 19:47> Patient Disposition: Home, Self-Care <TOY Huerta Last Filed: 08/25/22 19:47> Instructions: Pharyngitis (ED) <TOY Huerta Last Filed: 08/25/22 19:47> Additional Instructions: Follow up with your primary care provider. Return to the emergency department immediately if your symptoms worsen or if you develop any dizziness, shortness of breath, difficulty breathing, chest pain, blurry vision, loss of vision, nausea, vomiting, abdominal pain, fever, chills, back pain, or any other complaints. <TOY Huerta Last Filed: 08/25/22 19:47> Prescriptions: New lidocaine HCl [Lidocaine Viscous] 2 % solution 1.2 ml PO BID PRN (Reason: pain) Qty: 100 0RF No Action acetaminophen [Mapap Arthritis Pain] 650 mg tablet extended release 1 tab PO Q8H PRN (Reason: fever) ergocalciferol (vitamin D2) 1,250 mcg (50,000 unit) capsule 1 cap PO QWEEK amitriptyline 25 mg tablet 1 tab PO BEDTIME melatonin 5 mg Tablet 5 mg PO BEDTIME PRN (Reason: Insomnia) prednisone 10 mg tablets,dose pack 10 mg PO DAILY Qty: 48 0RF Rx Instructions: Take 4 tabs x4 days, then 3 tabs x4 days, then 2 tabs x4 days, then 1 tab x4 days. Discard remainder <TOY Huerta - Last Filed: 08/25/22 19:47> Referrals: Kitty Peres DO [Primary Care Provider] - <TOY Huerta - Last Filed: 08/25/22 19:47> Stand Alone Forms: Work/School Release <TOY Huerta - Last Filed: 08/25/22 19:47> Interventions: ED Discharge Assessment Last Done: 08/25/22 18:03 <TOY Huerta - Last Filed: 08/25/22 19:47> Discharge Date/Time: 08/25/22 18:04 <TOY Huerta - Last Filed: 08/25/22 19:47> Print Language: [place] <TOY Huerta - Last Filed: 08/25/22 19:47>
[2022-08-25 16:27] VITALS: BP 141/83; PULSE 101; RESP 18; TEMP 36.6; O2SAT 97; BMI 29.0
[2022-08-25 17:03] LABS: IDNOW Serial# 6674DD1D; Strep A Nucleic Acid Negative (Negative)
[2022-08-25 17:24] LABS: Influenza A PCR NEGATIVE (Negative); Influenza B PCR NEGATIVE (Negative); Resp Syncy Virus RNA Qual PCR NEGATIVE (Negative); SARS COV2 PCR INHOUSE NEGATIVE (Negative)
[2022-08-25] MEDS: Lidocaine HCl Viscous 2 % 15 ML SOLUTION MUCOUS MEM (18:02)
== END 2022-08-25 18:04 | disposition home or self-care (01) ==
PROVIDERS: Physician Assistant; Emergency Provider Emergency Medicine Emergency Medical Services; PCP Family Medicine
DX: J02.9 Acute pharyngitis, unspecified (principal); R50.9 Fever, unspecified; Z20.822 Contact with and (suspected) exposure to COVID-19; Z20.828 Contact with and (suspected) exposure to other viral communicable diseases
CPT/HCPCS: 0241U; 87651; 99282; 99283

== ENCOUNTER 2023-03-06 12:45 | Outpatient (REF) | payer OTHER, SELFPAY ==
[2023-03-06 16:19] LABS: MANUAL DIFF FLAG NO
[2023-03-06 16:38] LABS: Basophils Percent Auto 0.5 % (0-2); Eosinophils Absolute Auto 0.1 X10*3/uL (0.0-0.4); Eosinophils Percent Auto 1.5 % (0-4); Hematocrit 47.2 % (42.0-52.0); Hemoglobin 15.6 g/dl (14.0-18.0); Imm Gran Abs Auto 0.06 X10*3/uL (0.00-0.03); Imm Gran Pct Auto 0.7 % (0.0-0.4); Lymphocytes Absolute Auto 1.6 X10*3/uL (1.2-4.9); Lymphocytes Percent Auto 19.2 % (20-40); Mean Corpuscular HGB Conc 33.1 g/dl (31.0-36.0); Mean Corpuscular Hemoglobin 27.7 pg (27.0-33.0); Mean Corpuscular Volume 83.7 fL (80.0-98.0); Mean Platelet Volume 10.4 fL (9.4-12.4); Monocytes Absolute Auto 0.8 X10*3/uL (0.1-1.2); Monocytes Percent Auto 9.1 % (2-11); Neutrophils Absolute Auto 5.7 x10*3/uL (2.0-8.3); Platelet Count 298 X10*3/uL (160-400); Red Blood Count 5.64 X10*6/uL (4.60-5.80); Red Cell Distribution Width 12.8 % (11.0-16.0); White Blood Count 8.2 X10*3/uL (4.8-10.8)
[2023-03-06 17:00] LABS: Estimated Average Glucose 100 mg/dL; Hemoglobin A1c % 5.1 %
[2023-03-06 17:11] LABS: Alanine Aminotransferase 24 U/L (0-40); Albumin Level 4.6 g/dL (3.5-5.0); Alkaline Phosphatase 108 U/L (39-117); Anion Gap 16 (12-20); Aspartate Amino Transferase 21 U/L (5-37); Bilirubin Direct 0.2 mg/dL (0.0-0.5); Bilirubin Total 0.6 mg/dL (0.0-1.0); Blood Urea Nitrogen 19 mg/dL (9-16); Calcium 9.6 mg/dL (8.4-10.2); Carbon Dioxide 18 mmol/L (22-29); Chloride 107 mmol/L (96-108); Cholesterol 171 mg/dL; Estimated Glomerular Filt Rate > 60; Glucose Random 94 mg/dL (60-115); HDL Cholesterol 35 mg/dL; LDL Cholesterol Calculated 111 mg/dl; Potassium 3.9 mmol/L (3.3-5.1); Sodium 137 mmol/L (135-145); Total Protein 7.6 g/dL (6.5-8.0); Triglycerides 126 mg/dL
[2023-03-06 17:16] LABS: Free T4 (Free Thyroxine) 0.97 ng/dL (0.71-1.85); Thyroid Stimulating Hormone 1.31 uIU/mL (0.32-4.0); Vitamin D 25-OH Total 23.1 ng/mL (>30)
[2023-03-07 14:44] LABS: CT PCR NOT DETECTED (Not Detect.); NG PCR NOT DETECTED (Not Detect.)
[2023-03-09 04:03] LABS: Syphilis Screen Nonreactive (Nonreactive)
[2023-03-09 04:17] LABS: ~HepC Num1 0.04 S/CO (0.00-0.79); ~Hepatitis C Antibody Nonreactive (Nonreactive)
[2023-03-09 04:20] LABS: HBS Num1 50.23 mIU/mL (0-7.99); HBsAGNum1 0.41 S/CO (0.00-0.99); HIV AB/AG Nonreactive (Nonreactive); HIV Num 1 0.05 S/CO (0.00-0.99); Hepatitis B Surface Antigen Negative (Negative); ~Hepatitis B Surface Antibody REACTIVE (Nonreactive)
[2023-03-11 18:36] LABS: H Pylori Breath Test Negative (Negative)
== END 2023-03-06 12:46 | disposition home or self-care (01) ==
LOC: HO.HHCL 12:45
PROVIDERS: Visit Provider Family Medicine
DX: Z11.4 Encounter for screening for human immunodeficiency virus [HIV] (principal); K21.9 Gastro-esophageal reflux disease without esophagitis; Z20.2 Contact with and (suspected) exposure to infections with a predominantly sexual mode of transmission; E78.5 Hyperlipidemia, unspecified; E66.3 Overweight; Z68.29 Body mass index [BMI] 29.0-29.9, adult
CPT/HCPCS: 0353U; 36415; 80048; 80061; 80076; 82306; 83013; 83036; 84439; 84443; 85025; 86706; 86780; 86803; 87340; 87389

== ENCOUNTER 2023-03-20 17:56 | Outpatient (REF) | payer OTHER, SELFPAY | END 2023-03-20 17:57 | disposition home or self-care (01) | LOC: HO.HHCLNP 17:56 | PROVIDERS: Visit Provider Emergency Medicine | DX: Z13.89 Encounter for screening for other disorder (principal) ==

== ENCOUNTER 2023-03-26 07:53 | Outpatient (REF) | payer OTHER, SELFPAY ==
--- NOTE | ~2023-03-26 | US_ITS ---
EXAMINATION: US ABDOMEN COMPLETE CLINICAL INFORMATION: Abdominal distention. COMPARISON: Abdominal ultrasound 04/21/2013 TECHNIQUE: Real-time imaging of the abdominal viscera. FINDINGS: PANCREAS: Normal. ABDOMINAL AORTA: Visualized aorta is normal in caliber however portions are obscured by bowel gas. INFERIOR VENA CAVA: Visualized portions are normal. LIVER: Normal. The liver is normal in size. The liver contour is normal. Parenchymal echogenicity is normal. No focal hepatic lesion. There is no intrahepatic biliary duct dilatation seen. GALLBLADDER: Negative sonographic Love sign. The gallbladder is physiologically distended. Multiple mobile gallstones and sludge are present. No evidence of gallbladder wall thickening or pericholecystic fluid. COMMON BILE DUCT: Normal in caliber measuring 0.4 cm in diameter. RIGHT KIDNEY: Normal. No hydronephrosis. No renal calculi or focal parenchymal lesions. The kidney measures 11.4 cm in maximum dimension. LEFT KIDNEY: Normal. No hydronephrosis. No renal calculi or focal parenchymal lesions. The kidney measures 11.5 cm in maximum dimension. SPLEEN: Normal. The spleen measures 8.9 cm in maximum dimension. FREE FLUID: None. US/US abdomen complete IMPRESSION: Gallstones and gallbladder sludge without findings to suggest acute cholecystitis.
== END 2023-03-26 07:54 | disposition home or self-care (01) ==
LOC: HO.US 07:53
PROVIDERS: PCP Family Medicine; Visit Provider Family Medicine
DX: R14.0 Abdominal distension (gaseous) (principal)
CPT/HCPCS: 76700

== ENCOUNTER 2023-05-12 14:20 | Outpatient (AMB) | payer OTHER, SELFPAY ==
--- NOTE | 2023-05-12 14:33 | A.OFFVIS_ITS ---
Intake Vital Signs 05/12/23 15:05 Height 5 ft 6 in Weight 179 lb BMI 28.9 BP 135/87 Blood Pressure Location Lt brachial Position Sitting Pulse 105 H Intake Visit Reasons: gallstones Intake Note: Patient is seen in office for evaluation and treatment of gallstones. Patient c/o: left side abdominal pain, after eating, for the past 3 months, no prior imaging, denies nausea, vomit, diarrhea, constipation. Has a left leg skin lesion for the past 5 months, dark color, looks like blood collection per pt, has increase in size, denies pain Switchboard Operator Required: No Accompanied by: Self / Same As Patient Allergies No Known Allergies Allergy (Verified 09/16/21 19:31) Medication List - Last Reconciled 05/13/23 by Solomon Pinzon MD acetaminophen ER (Mapap Arthritis Pain) 1 tab PO Q8H PRN amitriptyline 1 tab PO BEDTIME ergocalciferol (vitamin D2) 1 cap PO QWEEK lidocaine HCl 2% (Lidocaine Viscous) 1.2 mL PO BID PRN melatonin 5 mg PO BEDTIME PRN HPI HPI Comments History of Present Illness Details 33-year-old male patient presenting with complaints of abdominal pain of several months duration. The pain is episodic in usually associated with eating. Pain is mainly epigastric and left upper quadrant with occasional radiation to the right upper quadrant. Episodes usually last approximately an hour and may occur several times a week. Pain increases when eating fatty/fried foods but has less common when avoiding these foods. He denies nausea, vomiting, fever or chills. Workup with ultrasound of the abdomen did reveal multiple gallstones within the gallbladder without wall thickening, pericholecystic fluid or ductal dilatation. He presents today to discuss possible laparoscopic cholecystectomy. Patient also notes a brown lesion of the left leg which started out as a small dot but has gradually increased in size. He reports feeling fluid below the lesion is concerned of its cause. Denies any bleeding or discharge. He is requesting excision of this lesion as well. 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 Review of Systems Const All systems reviewed & are unremarkable except as noted in HPI and below GI Reports abdominal pain, Denies constipation, Denies GI cramping, Denies diarrhea, Denies nausea and Denies vomiting Physical Exam Vital Signs: Last Vital Signs Pulse 105 H 05/12/23 15:05 BP 135/87 05/12/23 15:05 BMI result Body Mass Index 28.9 Const General: cooperative and no acute distress Nutritional Appearance: well nourished Orientation/consciousness: patient oriented x3 Limitations: no limitations HEENT Head: Yes normocephalic and Yes atraumatic Ears: hearing grossly normal bilaterally Resp Effort & Inspection: normal respiratory effort, no audible wheezes, no cough and no respiratory distress Cardio Jugular venous distension: no JVD GI Inspection: Yes normal to inspection Palpation (GI): Soft to palpation, nontender, no guarding, not rigid and no masses Percussion: Yes normal to percussion Auscultation: normal bowel sounds Skin Other: Warm, dry, no rash Neuro General: patient oriented x3 Extrem General: Yes no clubbing, cyanosis or edema Assessment & Plan Assessment & Plan (1) Biliary colic: Code(s): K80.50 - Calculus of bile duct without cholangitis or cholecystitis without obstruction Plan: 33-year-old male patient presenting with recurring episodes of abdominal pain in the epigastrium and left upper quadrant associated with oral intake especially fatty foods. Denies nausea, vomiting, fever or chills. Workup with ultrasound abdomen reveals multiple gallstones within the gallbladder. On examination, the patient is currently soft and nondistended with no tenderness in the right upper quadrant and a negative Love sign. Findings are most consistent with biliary colic due to the multiple gallstones within the gallbladder. We discussed elective laparoscopic or possible open cholecystectomy as an option. After discussion of the procedure, risks, and alternatives, he consents to a laparoscopic or possible open cholecystectomy. He would like to have the skin lesion of the left leg excise at the same time. I also reviewed the procedure, risks and alternatives of this procedure and he consents to the excision of left leg skin lesion. (2) Skin lesion of left leg: Code(s): L98.9 - Disorder of the skin and subcutaneous tissue, unspecified Coding Level of Care Code New Pt Level 4 (85424) Diagnoses Biliary colic K80.50 Skin lesion of left leg L98.9
[2023-05-12 15:05] VITALS: BP 135/87; PULSE 105; BMI 28.9
== END 2023-05-12 15:21 | disposition home or self-care (01) ==
PROVIDERS: PCP Family Medicine; Visit Provider Surgery
DX: K80.50 Calculus of bile duct without cholangitis or cholecystitis without obstruction (principal); L98.9 Disorder of the skin and subcutaneous tissue, unspecified
CPT/HCPCS: 99214

== ENCOUNTER → 2023-05-12 14:20 | Outpatient (BNVA) | payer OTHER, SELFPAY | PROVIDERS: PCP Family Medicine; Visit Provider Surgery ==

== ENCOUNTER 2023-06-12 20:01 | Emergency (ER) | payer OTHER, SELFPAY ==
--- NOTE | ~2023-06-12 | XR_ITS ---
EXAMINATION: XR CHEST CLINICAL INFORMATION: Cough. COMPARISON: Chest x-ray December 22, 2016 TECHNIQUE: Frontal view of the chest was obtained. 2230 hours FINDINGS: No significant abnormality is noted involving the heart, lungs, mediastinum, bony thorax or soft tissues. XR/XR chest 1V IMPRESSION: Unremarkable examination.
[2023-06-12 21:32] VITALS: BP 145/92; PULSE 101; RESP 19; TEMP 37.2; O2SAT 98; BMI 27.0
[2023-06-12 22:07] LABS: Hematocrit 38.2 % (42.0-52.0); Hemoglobin 12.7 g/dl (14.0-18.0); Mean Corpuscular HGB Conc 33.2 g/dl (31.0-36.0); Mean Corpuscular Hemoglobin 27.4 pg (27.0-33.0); Mean Corpuscular Volume 82.5 fL (80.0-98.0); Mean Platelet Volume 8.4 fL (9.4-12.4); Platelet Count 385 X10*3/uL (160-400); Red Blood Count 4.63 X10*6/uL (4.60-5.80); Red Cell Distribution Width 12.8 % (11.0-16.0); White Blood Count 13.1 X10*3/uL (4.8-10.8)
[2023-06-12 22:12] LABS: IDNOW Serial# 6674DD1D
[2023-06-12 22:13] LABS: Strep A Nucleic Acid Positive (Negative)
[2023-06-12 22:20] LABS: Alanine Aminotransferase 28 U/L (0-40); Albumin Level 3.9 g/dL (3.5-5.0); Alkaline Phosphatase 115 U/L (39-117); Anion Gap 11 (12-20); Aspartate Amino Transferase 21 U/L (5-37); Bilirubin Total 0.1 mg/dL (0.0-1.0); Blood Urea Nitrogen 23 mg/dL (9-16); Calcium 9.2 mg/dL (8.4-10.2); Carbon Dioxide 25 mmol/L (22-29); Chloride 107 mmol/L (96-108); Creatinine Clr Calc Pharmacy 101.3; Estimated Glomerular Filt Rate > 60; Glucose Random 102 mg/dL (60-115); Potassium 3.8 mmol/L (3.3-5.1); Sodium 139 mmol/L (135-145); Total Protein 7.7 g/dL (6.5-8.0)
[2023-06-12 22:38] LABS: Influenza A PCR NEGATIVE (Negative); Influenza B PCR NEGATIVE (Negative); Resp Syncy Virus RNA Qual PCR NEGATIVE (Negative); SARS COV2 PCR INHOUSE NEGATIVE (Negative)
--- NOTE | 2023-06-12 22:53 | ED.GENADULT ---
HPI - General Adult General Chief complaint: Upper Respiratory Symptoms Stated complaint: earache, coughing, runny nose, SOB Time Seen by Provider: 06/12/23 22:50 Source: patient Mode of arrival: ambulatory Limitations: no limitations History of Present Illness HPI narrative: Patient is a 33 year old assigned male at with history of GERD presenting to the emergency department today with a fever and feeling generally unwell. Patient states that 2 days ago he began to have a fever and feel generally unwell. Patient denies any dizziness, lightheadedness, abdominal pain, nausea, vomiting, chills, blurry vision, double vision, loss of vision, chest pain, difficulty breathing, shortness of breath, back pain, night sweats, pain with urination, increased urinary frequency, increased urinary urgency, blood in his urine or stool, syncope or a near syncopal episode, recent trauma or falls, bowel incontinence, bladder incontinence, bowel retention, bladder retention, or any other complaints at this time. Onset (ago): day(s) (2) Severity: mild Severity scale (1-10): 3 Relieving factors: none Exacerbating factors: none Associated symptoms: fever/chills Treatments prior to arrival: none Related Data Home Medications Medication Instructions Recorded Confirmed acetaminophen 650 mg 1 tab PO Q8H PRN fever 11/05/20 06/11/21 tablet,extended release (Mapap Arthritis Pain) ergocalciferol (vitamin D2) 1,250 1 cap PO QWEEK 11/05/20 06/11/21 mcg (50,000 unit) capsule amitriptyline 25 mg tablet 1 tab PO BEDTIME 06/11/21 06/11/21 melatonin 5 mg tablet 5 mg PO BEDTIME PRN Insomnia 06/11/21 06/11/21 Previous Rx's Medication Instructions Recorded lidocaine HCl 2 % mucosal solution 1.2 ml PO BID PRN pain #100 mL 08/25/22 (Lidocaine Viscous) penicillin V potassium 500 mg 500 mg PO BID 10 days #20 tabs 06/12/23 tablet Allergies Allergy/AdvReac Type Severity Reaction Status Date / Time No Known Allergies Allergy Verified 09/16/21 19:31 Review of Systems Constitutional: Constitutional: Reports no additional constitutional complaints, Denies chills, Reports fever(s) and Denies night sweats Eyes: Eyes: Reports no additional eye complaints, Denies blurry vision, Denies change in vision, Denies diplopia, Denies eye discharge, Denies loss of vision and Denies eye pain ENT: Denies dizziness Cardiovascular: Cardiovascular: Reports no additional cardiovascular complaints, Denies chest pain, Denies lightheadedness, Denies Loss of Consciousness and Denies dyspnea Respiratory: Respiratory: Reports no additional respiratory complaints and Denies dyspnea Gastrointestinal: Gastrointestinal: Reports no additional gastrointestinal complaints, Denies abdominal pain, Denies melena, Denies hematochezia, Denies change in bowel habits and Denies change in stool character Genitourinary: Genitourinary: Reports no additional male genitourinary complaints, Denies hematuria, Denies oliguria, Denies difficulty urinating, Denies dysuria, Denies urinary frequency, Denies urinary hesitancy, Denies urinary incontinence and Denies urinary urgency Musculoskeletal: Musculoskeletal: Reports no additional musculoskeletal complaints, Denies numbness and Denies tingling Neurologic: Denies dizziness, Denies loss of vision, Denies numbness and Denies tingling Psychiatric: Psychiatric: Reports no additional psychiatric complaints Endocrine: Endocrine: Reports no additional endocrine complaints Hematologic/Lymphatic: Hematologic/Lymphatic: Reports no additional hematologic/lymphatic complaints Allergic/Immunologic: Allergic/Immunologic: Reports no additional allergic/immunologic complaints [facility] Past Medical History Attestation statement: The following information was validated with the patient. 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 Physical Exam ED Vital Signs: Vital Signs - 24 hr 06/12/23 21:32 Temperature 98.9 F Pulse Rate 101 H Respiratory Rate 19 Blood Pressure 145/92 H Pulse Oximetry 98 Oxygen Delivery Method Room Air BMI result Body Mass Index 27.0 Const General: cooperative, no acute distress, alert and awake Nutritional Appearance: well nourished Orientation/consciousness: patient oriented x3 Limitations: no limitations HENMT Head: Yes normal to inspection and Yes atraumatic Ears: hearing grossly normal bilaterally and external ears normal General nose exam: Normal external nose present, no nasal discharge noted and no epistaxis Face and sinus: Yes normal facial exam, No abrasion and No laceration Mouth: Normal oral and palatal mucosa present, no drooling and no muffled voice Throat: Yes abnormal tonsil (bilateral erythema and swelling) Eyes General: appearance normal, both eyes and all related structures Periorbital: periorbital findings normal Eyelids: Yes eyelids normal Conjunctivae: conjunctivae normal Pupils: Equal, round and reactive pupils present EOM: EOMs intact bilaterally Neck Neck: Yes normal visual inspection, Yes full ROM and Yes no lymphadenopathy Chest Chest palpation & inspection: normal inspection of the chest Resp Effort & Inspection: normal respiratory effort and able to speak in complete sentences Auscultation: clear to auscultation bilaterally Cardio Rate: regular rate Rhythm: regular rhythm GI Inspection: Yes normal to inspection Neuro General: patient oriented x3 and moves all extremities Cranial nerves: Yes Equal, round and reactive pupils present Cognition (Neuro): normal cognition Motor exam (neuro): 5/5 motor strength present throughout Sensory Exam: Normal double simultaneous stimulation for sensation Coordination: [id number] test normal Extrem General: Yes normal to inspection, Yes full ROM and Yes capillary refill normal Psych Appearance: grossly normal Mental Status: mental status grossly normal Affect: normal affect Attitude: cooperative Thought process: Normal thought process present Thought content: Normal thought content present Insight: Good insight present (Psych) Medications Administered Discontinued Medications Generic Name Dose Route Start Last Admin Trade Name Freq PRN Reason Stop Dose Admin Penicillin V Potassium 500 mg 06/12/23 23:25 06/12/23 23:48 Penicillin V Potassium 250 Mg Tablet PO 06/12/23 23:26 500 mg ONCE ONE Administration Medical Decision Making Medical Decision Making [facility] Narrative: Patient is a 33 year old assigned male at with a history of GERD presenting to the emergency department today with a fever and feeling generally unwell. Patient's physical exam showed bilateral erythematous and swollen tonsils but was otherwise unremarkable. Patient's blood work showed a mildly elevated WBC count of 131, consistent with an infectious process, but the rest of the blood work was unremarkable. Patient's strep test was positive. Patient's COVID-19, influenza, and RSV swabs were all negative. Patient's chest x-ray showed no acute process. I explained my physical exam findings as well as all test results to the patient. I answered all questions asked by the patient. I stressed the importance of the patient taking his medication as prescribed. I stressed the importance of the patient following up with his primary care provider. I stressed the importance of the patient returning to the emergency department immediately if his symptoms were to worsen or if he were to develop any dizziness, shortness of breath, difficulty breathing, chest pain, blurry vision, loss of vision, nausea, vomiting, abdominal pain, fever, chills, back pain, or any other complaints. Patient verbalized agreement and understanding with this treatment plan and discharge. Differential Diagnosis Differential Diagnoses: The differential diagnosis associated with the presentation includes Viral illness COVID-19 RSV Influenza Strep pharyngitis Admission/Observation Consideration of admission/observation: Escalation of care including admission/observation considered Patient would have been admitted to the hospital had his work up had any findings where hospital admission was appropriate and his clinical presentation warranted hospital admission. Lab Data [facility] Lab Attestation statement: I reviewed the patient's lab results. My interpretation of these results are in the [facility] Rationale portion of this note. 06/12/23 21:51 06/12/23 21:51 Labs: Lab Results 06/12/23 Range/Units 21:51 WBC 13.1 H (4.8-10.8) X10*3/uL RBC 4.63 (4.60-5.80) X10*6/uL Hgb 12.7 L (14.0-18.0) g/dl Hct 38.2 L (42.0-52.0) % MCV 82.5 (80.0-98.0) fL MCH 27.4 (27.0-33.0) pg MCHC 33.2 (31.0-36.0) g/dl RDW 12.8 (11.0-16.0) % Plt Count 385 D (160-400) X10*3/uL MPV 8.4 L (9.4-12.4) fL Absolute Nucleated RBC 0.000 (0.0-0.012) X10*3/uL Nucleated RBC % (auto) 0.0 (0.0-0.2) /100WBC Sodium 139 (135-145) mmol/L Potassium 3.8 (3.3-5.1) mmol/L Chloride 107 (96-108) mmol/L Carbon Dioxide 25 (22-29) mmol/L Anion Gap 11 L (12-20) BUN 23 H (9-16) mg/dL Creatinine 0.96 (0.5-1.4) mg/dL Estim Creat Clear Calc 101.3 Estimated GFR > 60 Random Glucose 102 (60-115) mg/dL Calcium 9.2 (8.4-10.2) mg/dL Total Bilirubin 0.1 (0.0-1.0) mg/dL AST 21 (5-37) U/L ALT 28 (0-40) U/L Alkaline Phosphatase 115 (39-117) U/L Total Protein 7.7 (6.5-8.0) g/dL Albumin 3.9 (3.5-5.0) g/dL Influenza Type A (PCR) NEGATIVE (Negative) Influenza Type B (PCR) NEGATIVE (Negative) RSV RNA Qual (PCR) NEGATIVE (Negative) SARS-CoV-2 RNA (RT-PCR) NEGATIVE (Negative) S. pyogenes GrpA SHANON Positive A (Negative) Independent Interpretation I performed an independent interpretation of an: Plain X-Ray Interpretation: My interpretation is in agreement with the radiologist's impression of this imaging study. EXAMINATION: XR CHEST CLINICAL INFORMATION: Cough. COMPARISON: Chest x-ray December 22, 2016 TECHNIQUE: Frontal view of the chest was obtained. 2230 hours FINDINGS: No significant abnormality is noted involving the heart, lungs, mediastinum, bony thorax or soft tissues. XR/XR chest 1V IMPRESSION: Unremarkable examination. Dictated By: Darrius Aldridge MD Signed By: Electronically signed by Darrius Aldridge MD 06/12/23 2316 Radiology Impression Discussion of test interpretation with radiology: I have reviewed the radiologist's reading. Prescription Management I considered prescription management with: Antibiotic (patient prescribed an antibiotic for his strep pharyngitis.) Discharge Plan Discharge Clinical Impression: Acute streptococcal pharyngitis Patient Disposition: Home, Self-Care Instructions: Strep Throat (DC) Additional Instructions: Follow up with your primary care provider. Return to the emergency department immediately if your symptoms worsen or if you develop any dizziness, shortness of breath, difficulty breathing, chest pain, blurry vision, loss of vision, nausea, vomiting, abdominal pain, fever, chills, back pain, or any other complaints. Prescriptions: New penicillin V potassium 500 mg tablet 500 mg PO BID 10 Days Qty: 20 0RF No Action acetaminophen [Mapap Arthritis Pain] 650 mg tablet extended release 1 tab PO Q8H PRN (Reason: fever) ergocalciferol (vitamin D2) 1,250 mcg (50,000 unit) capsule 1 cap PO QWEEK amitriptyline 25 mg tablet 1 tab PO BEDTIME melatonin 5 mg Tablet 5 mg PO BEDTIME PRN (Reason: Insomnia) lidocaine HCl [Lidocaine Viscous] 2 % solution 1.2 ml PO BID PRN (Reason: pain) Qty: 100 0RF Referrals: Kitty Peres DO [Primary Care Provider] - Stand Alone Forms: Work/School Release Interventions: ED Discharge Assessment Last Done: 06/12/23 23:52 Discharge Date/Time: 06/12/23 23:53 Print Language: Ghanaian
[2023-06-12] MEDS: Penicillin V Potassium 250 MG TABLET 500 MG PO (23:48)
== END 2023-06-12 23:53 | disposition home or self-care (01) ==
PROVIDERS: Emergency Provider Emergency Medicine; PCP Family Medicine
DX: J02.0 Streptococcal pharyngitis (principal); R05.9 Cough, unspecified; R50.9 Fever, unspecified; R06.02 Shortness of breath; Z11.52 Encounter for screening for COVID-19; Z20.822 Contact with and (suspected) exposure to COVID-19; Z79.899 Other long term (current) drug therapy
CPT/HCPCS: 0241U; 71045; 80053; 85027; 87651; 99282; 99283

== ENCOUNTER 2023-07-13 13:29 | Outpatient (REF) | payer OTHER, SELFPAY | END 2023-07-13 13:30 | disposition home or self-care (01) | LOC: HO.LNP 13:29 | PROVIDERS: Visit Provider Emergency Medicine | DX: N50.82 Scrotal pain (principal) | CPT/HCPCS: 87086 ==

== ENCOUNTER 2023-07-22 06:04 | Day surgery (SDC) | payer OTHER, SELFPAY ==
[2023-07-20 14:54] VITALS: BMI 28.9
[2023-07-20 15:32] VITALS: BMI 28.1
--- NOTE | 2023-07-21 10:33 | P.CONAN_ITS ---
Documented by User: Yasmeen Sharp NP 07/21/23 10:58 HPI - Anesthesia Eval Consult details Narrative: 33yo M for Cholecystectomy Laparoscopic,poss open PONV PMFSH Active Problems Active Problems: All Active Problems (Updated 07/20/23 @ 15:31 by Gaye Gee, RN) Biliary colic (Acute) Chronic GERD (Acute) Past Medical History Medical History (Updated 07/20/23 @ 15:31 by Gaye Gee, RN) Hx of streptococcal pharyngitis PONV (postoperative nausea and vomiting) Skin lesion of left leg COVID-19 virus infection Genital herpes Bilateral knee pain Rheumatic fever with cardiac involvement Rheumatic fever Dyslipidemia Chronic GERD Elevated liver enzymes Migraines Family History Family History Maternal Grandfather Cancer Maternal Grandmother Diabetes HTN (hypertension) Family history of problems with anesthesia: No Surgical History Surgical History Hx of lymph node excision Lymphadenopathy, inguinal History of appendectomy History of Problems with Anesthesia: No Social History Social History (Updated 07/20/23 @ 15:32 by Gaye Gee, NITESH) Household Members: Children Household Members Other:: son Housing: Apartment Are you a primary body care manager to a significant other at home: Yes (son, parents to help post-op) Do you presently have visiting nurse or other home services: No Alcohol intake: former Patient Tobacco Use Status: Never used Tobacco Use of substances other than those prescribed or required for medical reasons: No Have you been hit, kicked, punched, or otherwise hurt by someone within the past year? 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 Meds Allergies Allergy/AdvReac Type Severity Reaction Status Date / Time No Known Allergies Allergy Verified 07/20/23 15:35 Home Medications Medication Instructions Recorded Confirmed Last Taken Type acetaminophen 650 mg 1 tab PO Q8H PRN fever 11/05/20 06/11/21 Unknown History tablet,extended release (Mapap Arthritis Pain) ergocalciferol (vitamin D2) 1,250 1 cap PO QWEEK 11/05/20 06/11/21 Unknown History mcg (50,000 unit) capsule amitriptyline 25 mg tablet 1 tab PO BEDTIME 06/11/21 07/20/23 Unknown History melatonin 5 mg tablet 5 mg PO BEDTIME PRN Insomnia 06/11/21 06/11/21 Unknown History Exam Height,Weight and Vital Signs: Height 5 ft 6 in Weight 78.925 kg Pertinent Lab Results Pertinent Lab Results: Laboratory Tests 06/12/23 21:51 Calcium 9.2 Total Bilirubin 0.1 AST 21 ALT 28 Alkaline Phosphatase 115 Total Protein 7.7 Albumin 3.9 Laboratory Tests 06/12/23 21:51 WBC 13.1 H Hgb 12.7 L Hct 38.2 L Plt Count 385 D Sodium 139 Potassium 3.8 Chloride 107 Carbon Dioxide 25 BUN 23 H Creatinine 0.96 Assessment and Plan Assessment Anesthesia Assessment: Chart Reviewed Final Anesthetic Review Family History of Problems with Anesthesia: No History of Problems with Anesthesia: No Documented by User: Palma Alcala MD 07/22/23 07:23 [facility] Past Medical History Medical History (Updated 07/20/23 @ 15:31 by Gaye Gee, NITESH) Hx of streptococcal pharyngitis PONV (postoperative nausea and vomiting) Skin lesion of left leg COVID-19 virus infection Genital herpes Bilateral knee pain Rheumatic fever with cardiac involvement Rheumatic fever Dyslipidemia Chronic GERD Elevated liver enzymes Migraines Family History Family History Maternal Grandfather Cancer Maternal Grandmother Diabetes HTN (hypertension) Surgical History Surgical History Hx of lymph node excision Lymphadenopathy, inguinal History of appendectomy Social History Social History (Updated 07/20/23 @ 15:32 by Gaye Gee, RN) Household Members: Children Household Members Other:: son Housing: Apartment Are you a primary body care manager to a significant other at home: Yes (son, parents to help post-op) Do you presently have visiting nurse or other home services: No Alcohol intake: former Patient Tobacco Use Status: Never used Tobacco Use of substances other than those prescribed or required for medical reasons: No Have you been hit, kicked, punched, or otherwise hurt by someone within the past year? 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 Meds Allergies Allergy/AdvReac Type Severity Reaction Status Date / Time No Known Allergies Allergy Verified 07/20/23 15:35 Home Medications Medication Instructions Recorded Confirmed Last Taken Type acetaminophen 650 mg 1 tab PO Q8H PRN fever 11/05/20 06/11/21 Unknown History tablet,extended release (Mapap Arthritis Pain) ergocalciferol (vitamin D2) 1,250 1 cap PO QWEEK 11/05/20 06/11/21 Unknown History mcg (50,000 unit) capsule amitriptyline 25 mg tablet 1 tab PO BEDTIME 06/11/21 07/20/23 Unknown History melatonin 5 mg tablet 5 mg PO BEDTIME PRN Insomnia 06/11/21 06/11/21 Unknown History Exam Airway Mallampati Class: II TM Dist: >3cm Neck ROM: Full Heart: rrr Lungs: cta Assessment and Plan Assessment Anesthesia Assessment: Anesthesia Plan Discussed Final Anesthetic Review NPO: Yes ASA Class: II Final Preanesthetic Review: No Changes in Pt Med Stat, Meds/Allgs Chart Reviewed and Consent Obtained/Reviewed Patient Risk: Intermediate Procedure Risk: Intermediate Anesthetic Plan Anesthetic Plan: GA Disposition: Standard PACU
[2023-07-22] VITALS (11 sets, daily range): BP systolic 120–154; BP diastolic 69–93; PULSE 70–92; RESP 16–18; TEMP 36.1–36.8; O2SAT 92–100; BMI 27.9
[2023-07-22] MEDS: Lactated Ringers 1,000 ML 100 ML IVCONT (06:47)
[2023-07-22] MEDS: Scopolamine 1.5 MG PATCH.TD.3 TRANSDERMA (06:48)
--- NOTE | 2023-07-22 08:53 | P.OP_ITS ---
Operative Note Operative Note Date of Service: 07/22/23 Narrative: Preoperative diagnosis: biliary colic, left leg skin lesion Postoperative diagnosis: Same Procedure: Laparoscopic cholecystectomy, excision of left leg skin lesion Surgeon: Solomon Pinzon MD Wood Engraver: LAUREL Jasmine Anesthesia: General endotracheal Indications for procedure: 33-year-old male patient presenting with complaints of abdominal pain in the right upper quadrant found on ultrasound to have multiple gallstones within the gallbladder. Patient also complains of a skin lesion of the left leg is increasing in size and is requesting excision. Operative findings: Multiple gallstones within the gallbladder. No evidence of acute cholecystitis. Left leg varix. Specimen: gallbladder Estimated blood loss: 2 mL Complications: none Procedure details: Patient was brought to the OR and placed in a supine position. After administering general anesthesia the patient's abdomen was prepped with ChloraPrep and draped in a sterile fashion. A surgical time-out was called the consent confirmed. Patient received preoperative antibiotics and Venodyne boots were in place. Local anesthesia consisting of 0.5% Sensorcaine without epinephrine was infiltrated in a periumbilical region. A 5 mm incision was made above the umbilicus in a transverse fashion. The Veress needle was then inserted while elevating abdominal cavity with towel clips. After positive drop test the abdomen was insufflated to a pressure of 15 mm of mercury. The Veress needle was then removed and a 5 mm trocar inserted. The camera was inserted in the abdomen explored. A 12 mm trocar was then placed in the epigastrium. Two 5 mm trocars placed in the right upper quadrant by the medical laboratory assistant. The patient was placed in reverse Trendelenburg positioning and rotated to the left. The gallbladder was grasped with the fundus and retracted cephalad by the medical laboratory assistant. The infundibulum was then grasped and retracted away from the liver bed, also by the medical laboratory assistant. The Dolphin dissected was then used by the surgeon to dissect the peritoneum off the infundibulum to reveal the junction with the cystic duct. Cystic artery was noted slightly medial and posterior to the cystic duct. After obtaining a criti maranda view the cystic duct was doubly clipped and divided. The cystic artery was then doubly clipped and divided. The gallbladder was then dissected off the liver bed using electrocautery with an L hook. Hemostasis was assured all times using the electrocautery. When the gallbladder is completely dissected off the liver bed was placed in an Endo-Catch bag and brought out through the epigastric incision. The gallbladder was sent to pathology for further examination. The abdomen was then re-examined. The liver bed was irrigated and suctioned dry. No bleeding or bile leak could be identified. CO2 was then evacuated and all trocars removed. Fascia was closed at the epigastric incision using a [id number] 0 Polysorb suture. Skin was closed in all incisions using a subcuticular 4 0 Polysorb suture by both the surgeon and medical laboratory assistant. Sterile dressings consisting of Steri-Strips, 2 x 2 gauze, and Tegaderm were then applied. attention was then directed to the left leg which was prepped with Betadine and draped in a sterile fashion. Local anesthesia was infiltrated below the lesion in the virgen level. Elliptical incision was then created in a longitudinal fashion around the lesion. This was then carried out through subcutaneous tissue. Enlarged veins were noted associated with this lesion suggestive of a superficial varix. This was ligated using 4-0 Polysorb. The lesion was excised and sent to pathology for further examination. Dermis reapproximated using interrupted 4-0 Polysorb sutures. Skin was closed using a single 4-0 nylon suture. Tegaderm dressings were then applied. The patient tolerated the procedure well. Sponge instrument and needle counts reported as correct. The patient was transferred to PACU in stable condition.
--- NOTE | 2023-07-22 09:15 | MHC.SHP ---
Pre-Procedural Eval Section A Date of Service: 07/22/23 The patient is an INPATIENT: No Changes since office visit: No Cold of Flu in the past 2 weeks, No New Medical Problems, No Changes in Medication and No Patient answered all questions The History & Physical has been completed within 30 days and I have reviewed it.: No Section B Chief Complaint: Calculus of bile duct without cholangitis or pippa Details of Present Illness: no change in symptoms Relevant Family History (Specify if Yes): No Relevant Social History: None Present Medications: see Short Stay Collaborative assessment Medical History: No relevant PMH History of Previous Operations: No relevant previous surgery Allergies: Allergies Allergy/AdvReac Type Severity Reaction Status Date / Time No Known Allergies Allergy Verified 07/20/23 15:35 Review of Systems Sugical H&P ROS: Negative: Constitution, Cardiovascular, Respiratory, Neurological, Psychiatric, Hem-Onc, Allergic/Immunologic, Gastrointestinal, Genitourinary, Musculoskeletal, Integumentary, Endocrine and Eyes/Ears/Nose/Throat Exam Surgical H&P Exam: Normal: HEENT, Normal: Heart, Normal: Lungs, Normal: Extremities, Normal: Abdomen, Normal: Skin and Normal: Neurological Plan Diagnosis/Plan: Unchanged I have reviewed the history and physical and performed a pertinent physical examination on my patient. No changes have occurred unless specified. Time Spent With Patient Time: Total time managing care of this patient today ____ minutes.
[2023-07-22] MEDS: Acetaminophen 325 MG TABLET 650 MG PO (11:12)
== END 2023-07-22 13:00 | disposition home or self-care (01) ==
PROVIDERS: PCP Family Medicine; Visit Provider Surgery
PROC: 0FT44ZZ Resection of Gallbladder, Percutaneous Endoscopic Approach (ICD-10-PCS; CPT 47562; principal; 2023-07-22 07:30)
DX: K80.10 Calculus of gallbladder with chronic cholecystitis without obstruction (principal); R22.42 Localized swelling, mass and lump, left lower limb; I82.812 Embolism and thrombosis of superficial veins of left lower extremity; E78.5 Hyperlipidemia, unspecified; K21.9 Gastro-esophageal reflux disease without esophagitis; R74.8 Abnormal levels of other serum enzymes; Z79.899 Other long term (current) drug therapy; Z98.890 Other specified postprocedural states
CPT/HCPCS: 47562; 11401; 88304; 88305; J0330; J0665; J1100; J2250; J2371; J2405; J2704; J3010

== ENCOUNTER → 2023-07-22 06:04 | Outpatient (BNV) | payer OTHER, SELFPAY | PROVIDERS: PCP Family Medicine; Visit Provider Surgery | DX: K80.50 Calculus of bile duct without cholangitis or cholecystitis without obstruction (principal); L98.9 Disorder of the skin and subcutaneous tissue, unspecified | CPT/HCPCS: 27618; 47562 ==

== ENCOUNTER 2023-08-06 11:22 | Outpatient (AMB) | payer OTHER, SELFPAY ==
[2023-08-06 11:31] VITALS: BP 151/94; PULSE 84
--- NOTE | 2023-08-06 11:31 | MHC.OFFVIS ---
Intake Vital Signs 08/06/23 11:31 Weight 167 lb BP 151/94 H Blood Pressure Location Lt brachial Position Sitting Pulse 84 Intake Visit Reasons: S/P lap pippa Intake Note: Patient is seen in office for post op assessment post laparoscopic cholecystectomy on 07/22/23. Pt c/o: incisions healing well. Denies bleeding, tenderness. No longer taking rx pain meds. Care Team Assistant Required: No Accompanied by: Self / Same As Patient Allergies No Known Allergies Allergy (Verified 08/06/23 11:33) Medication List - Last Reconciled 08/06/23 by Solomon Pinzon MD acetaminophen ER (Mapap Arthritis Pain) 1 tab PO Q8H PRN amitriptyline 1 tab PO BEDTIME ergocalciferol (vitamin D2) 1 cap PO QWEEK lidocaine HCl 2% (Lidocaine Viscous) 1.2 mL PO BID PRN melatonin 5 mg PO BEDTIME PRN HPI HPI Comments History of Present Illness Details 33-year-old male patient status post laparoscopic cholecystectomy for biliary colic returning now 2 weeks postoperatively. He tolerated the surgery well and reports no abdominal pain, nausea, vomiting, fever, chills, diarrhea or constipation. He was unable to tolerate the oxycodone which made him nauseous. [facility] Medical History Hx of streptococcal pharyngitis PONV (postoperative nausea and vomiting) Skin lesion of left leg COVID-19 virus infection Genital herpes Bilateral knee pain Rheumatic fever with cardiac involvement Rheumatic fever Dyslipidemia Chronic GERD Elevated liver enzymes Migraines Surgical History History of laparoscopic cholecystectomy (07/22/23) Hx of lymph node excision Lymphadenopathy, inguinal History of appendectomy Family History Maternal Grandfather Cancer Maternal Grandmother Diabetes HTN (hypertension) Social History Household Members: Children Household Members Other:: son Housing: Apartment Are you a primary care tech to a significant other at home: Yes (son, parents to help post-op) Do you presently have visiting nurse or other home services: No Alcohol intake: former Comment: pt med prior to discharge Patient Tobacco Use Status: Never used Tobacco Current occupational status: employed 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 Steri-Strips removed in the incisions found to be well healed. Skin Other: Warm, dry, no rash Neuro General: patient oriented x3 Extrem General: Yes no clubbing, cyanosis or edema Assessment & Plan Assessment & Plan (1) Biliary colic: Code(s): K80.50 - Calculus of bile duct without cholangitis or cholecystitis without obstruction Plan Patient returns 2 weeks following laparoscopic cholecystectomy on 07/22/2023. He tolerated the procedure well and his wounds are healing nicely. He may resume normal activity and should continue to avoid fatty foods for another 3 weeks. He should follow up as needed. Coding Level of Care Code Global (43837) Diagnoses Biliary colic K80.50
== END 2023-08-06 11:35 | disposition home or self-care (01) ==
PROVIDERS: PCP Family Medicine; Visit Provider Surgery
DX: K80.50 Calculus of bile duct without cholangitis or cholecystitis without obstruction (principal)
CPT/HCPCS: 99024

== ENCOUNTER → 2023-08-06 11:22 | Outpatient (BNVA) | payer OTHER, SELFPAY | PROVIDERS: PCP Family Medicine; Visit Provider Surgery ==

== ENCOUNTER 2023-09-29 09:35 | Emergency (ER) | payer OTHER, SELFPAY ==
--- NOTE | ~2023-09-29 | XR_ITS ---
EXAMINATION: XR ABDOMEN COMPLETE CLINICAL INDICATION: Flat and upright. Rule out obstruction. COMPARISON: None available. TECHNIQUE: 2 views of the abdomen. FINDINGS: There is a cyst distended small bowel loop in the left upper mid quadrant. There is moderate stool and gas seen in transverse and ascending colon. No free air or pneumatosis. The gallbladder is out. No radiopaque renal calculi seen No organomegaly. No bony abnormality. XR/XR abdomen min 2V IMPRESSION: Nonspecific solitary gaseous distended small bowel loop in left upper quadrant. Stool and gas seen in the ascending and transverse colon likely mild constipation.
[2023-09-29 09:55] VITALS: BP 155/106; PULSE 81; RESP 18; TEMP 36.6; O2SAT 98; BMI 28.1
[2023-09-29 10:09] LABS: MANUAL DIFF FLAG NO
[2023-09-29 10:11] LABS: Basophils Percent Auto 0.4 % (0-2); Eosinophils Absolute Auto 0.2 X10*3/uL (0.0-0.4); Eosinophils Percent Auto 1.5 % (0-4); Imm Gran Pct Auto 0.9 % (0.0-0.4); Lymphocytes Absolute Auto 2.3 X10*3/uL (1.2-4.9); Lymphocytes Percent Auto 21.2 % (20-40); Mean Corpuscular HGB Conc 32.7 g/dl (31.0-36.0); Mean Corpuscular Hemoglobin 26.8 pg (27.0-33.0); Mean Corpuscular Volume 82.1 fL (80.0-98.0); Mean Platelet Volume 8.3 fL (9.4-12.4); Monocytes Absolute Auto 0.8 X10*3/uL (0.1-1.2); Monocytes Percent Auto 7.8 % (2-11); Neutrophils Absolute Auto 7.3 x10*3/uL (2.0-8.3); Neutrophils Percent Auto 68.2 % (45-73); Platelet Count 361 X10*3/uL (160-400); Red Blood Count 5.97 X10*6/uL (4.60-5.80); Red Cell Distribution Width 13.3 % (11.0-16.0); White Blood Count 10.7 X10*3/uL (4.8-10.8)
[2023-09-29 10:25] LABS: Alanine Aminotransferase 27 U/L (0-40); Albumin Level 4.5 g/dL (3.5-5.0); Alkaline Phosphatase 114 U/L (39-117); Anion Gap 12 (12-20); Aspartate Amino Transferase 19 U/L (5-37); Bilirubin Direct < 0.2 mg/dL (0.0-0.5); Bilirubin Total 0.2 mg/dL (0.0-1.0); Blood Urea Nitrogen 12 mg/dL (9-16); Calcium 9.1 mg/dL (8.4-10.2); Carbon Dioxide 27 mmol/L (22-29); Chloride 103 mmol/L (96-108); Creatinine Clr Calc Pharmacy 123.8; Estimated Glomerular Filt Rate > 60; Glucose Random 104 mg/dL (60-115); Lipase 11 U/L (8-78); Potassium 4.2 mmol/L (3.3-5.1); Sodium 138 mmol/L (135-145); Total Protein 7.8 g/dL (6.5-8.0)
[2023-09-29] MEDS: Ondansetron ODT 4 MG TAB.RAPDIS TRANSLINGU (11:43)
[2023-09-29] MEDS: Famotidine 20 MG TABLET PO (11:43)
[2023-09-29 11:47] VITALS: BP 138/98; PULSE 68; RESP 16; TEMP 36.8; O2SAT 100
[2023-09-29 12:57] VITALS: BP 155/101; PULSE 68; RESP 18; TEMP 36.7; O2SAT 100
--- NOTE | 2023-09-29 13:06 | ED_ITS ---
HPI - Abdominal Pain General Chief Complaint: Abdominal Pain Stated Complaint: Stomach Pain Time Seen by Provider: 09/29/23 10:41 Source: patient Mode of arrival: ambulatory Limitations: no limitations History of Present Illness HPI narrative: 2 months ago patient had a cholecystectomy, past three days he has had epigastric pain with constipation MD elicited complaint: abdominal pain Onset (ago): day(s) Location: epigastric Related Data Home Medications Medication Instructions Recorded Confirmed acetaminophen 650 mg 1 tab PO Q8H PRN fever 11/05/20 08/06/23 tablet,extended release (Mapap Arthritis Pain) ergocalciferol (vitamin D2) 1,250 1 cap PO QWEEK 11/05/20 08/06/23 mcg (50,000 unit) capsule amitriptyline 25 mg tablet 1 tab PO BEDTIME 06/11/21 08/06/23 melatonin 5 mg tablet 5 mg PO BEDTIME PRN Insomnia 06/11/21 08/06/23 Previous Rx's Medication Instructions Recorded lidocaine HCl 2 % mucosal solution 1.2 ml PO BID PRN pain #100 mL 08/25/22 (Lidocaine Viscous) psyllium husk (with sugar) 3.4 1 tsp PO DAILY #1,368 grams 09/29/23 gram/12 gram oral powder (Metamucil (with sugar)) Allergies Allergy/AdvReac Type Severity Reaction Status Date / Time No Known Allergies Allergy Verified 09/29/23 09:55 Review of Systems Review of Systems Yes all other systems are reviewed and are negative Denies Sensory deficit (Neuro) PMFSH Past Medical History Medical History Hx of streptococcal pharyngitis PONV (postoperative nausea and vomiting) Skin lesion of left leg COVID-19 virus infection Genital herpes Bilateral knee pain Rheumatic fever with cardiac involvement Rheumatic fever Dyslipidemia Chronic GERD Elevated liver enzymes Migraines Surgical History History of laparoscopic cholecystectomy (07/22/23) Hx of lymph node excision Lymphadenopathy, inguinal History of appendectomy Family History Family History Maternal Grandfather Cancer Maternal Grandmother Diabetes HTN (hypertension) Social History Social History Household Members: Children Household Members Other:: son Housing: Apartment Are you a primary hearing care professional to a significant other at home: Yes (son, parents to help post-op) Do you presently have visiting nurse or other home services: No Alcohol intake: former Comment: pt med prior to discharge Patient Tobacco Use Status: Never used Tobacco Advance Directives: No Advance Directives Information Provided: Yes Current occupational status: employed 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 Physical Exam ED Vital Signs: Vital Signs - 24 hr 09/29/23 09:55 09/29/23 11:47 09/29/23 12:57 Temperature 98 F 98.2 F 98.1 F Pulse Rate 81 68 68 Respiratory Rate 18 16 18 Blood Pressure 155/106 H 138/98 H 155/101 H Pulse Oximetry 98 100 100 Oxygen Delivery Method Room Air Room Air Room Air BMI result Body Mass Index 28.1 Const General: healthy appearing Nutritional Appearance: average body habitus Orientation/consciousness: oriented to person and patient oriented x3 Limitations: no limitations HENMT Head: Yes normal to inspection Ears: external ears normal General nose exam: Normal external nose present Mouth: Normal oral and palatal mucosa present and oropharynx normal Throat: Yes posterior oropharynx normal Eyes General: appearance normal, both eyes and all related structures Neck Neck: Yes normal visual inspection Chest Chest palpation & inspection: normal inspection of the chest Resp Auscultation: clear to auscultation bilaterally Cardio Jugular venous distension: no JVD Rate: regular rate Rhythm: regular rhythm Heart sounds: S1 normal heart sound present and S2 normal heart sound present GI Inspection: Yes normal to inspection Palpation (GI): Soft to palpation, nontender and No hepatosplenomegaly present Auscultation: normal bowel sounds General: Yes no CVA tenderness Back/Spine/Pelvis Back: no CVA tenderness Skin General skin exam: no rashes or lesions noted Neuro General: oriented to person and patient oriented x3 Cranial nerves: Yes CN's II-XII intact bilaterally Motor exam (neuro): 5/5 motor strength present throughout Sensory Exam: No Sensory deficit (Neuro) Extrem General: Yes normal to inspection Psych Appearance: grossly normal Course Reevaluation(s) Reevaluation #1: non focal non tender abdomen will treat for constipation Time: 13:08 Medical Decision Making Differential Diagnosis Differential Diagnoses: The differential diagnosis associated with the presentation includes (pancreatitis, hepatitis, gastritis, constipation were all considered) Admission/Observation Consideration of admission/observation: Escalation of care including admission/observation considered (upon arrival admission was considered) Lab Data MDM Lab Attestation statement: I reviewed the patient's lab results. 09/29/23 10:04 09/29/23 10:04 Labs: Lab Results 09/29/23 Range/Units 10:04 WBC 10.7 (4.8-10.8) X10*3/uL RBC 5.97 H D (4.60-5.80) X10*6/uL Hgb 16.0 D (14.0-18.0) g/dl Hct 49.0 D (42.0-52.0) % MCV 82.1 (80.0-98.0) fL MCH 26.8 L (27.0-33.0) pg MCHC 32.7 (31.0-36.0) g/dl RDW 13.3 (11.0-16.0) % Plt Count 361 (160-400) X10*3/uL MPV 8.3 L (9.4-12.4) fL Immature Gran % (Auto) 0.9 H (0.0-0.4) % Neut % (Auto) 68.2 (45-73) % Lymph % (Auto) 21.2 (20-40) % [place] % (Auto) 7.8 (2-11) % Eos % (Auto) 1.5 (0-4) % Baso % (Auto) 0.4 (0-2) % Lymph # (Auto) 2.3 (1.2-4.9) X10*3/uL [place] # (Auto) 0.8 (0.1-1.2) X10*3/uL Eos # (Auto) 0.2 (0.0-0.4) X10*3/uL Baso # (Auto) 0.0 (0.0-0.2) X10*3/uL Abs Immat Gran (auto) 0.10 H (0.00-0.03) X10*3/uL Absolute Neuts (auto) 7.3 (2.0-8.3) x10*3/uL Absolute Nucleated RBC 0.000 (0.0-0.012) X10*3/uL Nucleated RBC % (auto) 0.0 (0.0-0.2) /100WBC Sodium 138 (135-145) mmol/L Potassium 4.2 (3.3-5.1) mmol/L Chloride 103 (96-108) mmol/L Carbon Dioxide 27 (22-29) mmol/L Anion Gap 12 (12-20) BUN 12 (9-16) mg/dL Creatinine 0.83 (0.5-1.4) mg/dL Estim Creat Clear Calc 123.8 Estimated GFR > 60 Random Glucose 104 (60-115) mg/dL Calcium 9.1 (8.4-10.2) mg/dL Total Bilirubin 0.2 (0.0-1.0) mg/dL Direct Bilirubin < 0.2 (0.0-0.5) mg/dL AST 19 (5-37) U/L ALT 27 (0-40) U/L Alkaline Phosphatase 114 (39-117) U/L Total Protein 7.8 (6.5-8.0) g/dL Albumin 4.5 (3.5-5.0) g/dL Lipase 11 (8-78) U/L Independent Interpretation I performed an independent interpretation of an: Plain X-Ray (no free air, no SBO, positive constipation) Tests considered The following testing was considered but not selected: CT of abdomen considered but nontender abdomen, no fever no WBC Prescription Management I considered prescription management with: Antibiotic (no evidence of bacterial infection) Medications Administered Discontinued Medications Generic Name Dose Route Start Last Admin Trade Name Freq PRN Reason Stop Dose Admin Famotidine 20 mg 09/29/23 10:59 09/29/23 11:43 Famotidine 20 Mg Tablet PO 09/29/23 11:00 20 mg ONCE ONE Administration Ondansetron HCl 4 mg 09/29/23 10:59 09/29/23 11:43 Ondansetron Odt 4 Mg Tab.Rapdis TRANSLINGU 09/29/23 11:00 4 mg ONCE ONE Administration Discharge Plan Discharge Clinical Impression: Constipation Patient Disposition: Home, Self-Care Instructions: Constipation (ED) Prescriptions: New Metamucil (with sugar) 3.4 gram/12 gram powder 1 tsp PO DAILY Qty: 1368 0RF No Action acetaminophen [Mapap Arthritis Pain] 650 mg tablet extended release 1 tab PO Q8H PRN (Reason: fever) ergocalciferol (vitamin D2) 1,250 mcg (50,000 unit) capsule 1 cap PO QWEEK amitriptyline 25 mg tablet 1 tab PO BEDTIME melatonin 5 mg Tablet 5 mg PO BEDTIME PRN (Reason: Insomnia) lidocaine HCl [Lidocaine Viscous] 2 % solution 1.2 ml PO BID PRN (Reason: pain) Qty: 100 0RF Referrals: Kitty Peres DO [Primary Care Provider] - 5 days
== END 2023-09-29 13:41 | disposition home or self-care (01) ==
PROVIDERS: Emergency Provider Emergency Medicine; PCP Family Medicine
DX: K59.00 Constipation, unspecified (principal); R10.13 Epigastric pain; Z79.899 Other long term (current) drug therapy
CPT/HCPCS: 36415; 74019; 80048; 80076; 83690; 85025; 99283

== ENCOUNTER 2023-10-05 | Outpatient (REF) | payer OTHER, SELFPAY | END 2023-10-05 00:01 | disposition home or self-care (01) | LOC: HO.LNP | PROVIDERS: Visit Provider Nurse Practitioner Family | DX: K21.00 Gastro-esophageal reflux disease with esophagitis, without bleeding (principal) | CPT/HCPCS: 87338 ==

== ENCOUNTER 2024-01-01 13:52 | Outpatient (REF) | payer OTHER, SELFPAY ==
--- NOTE | ~2024-01-01 | XR_ITS ---
EXAMINATION: XR KNEE, RIGHT CLINICAL INFORMATION: Right knee pain and swelling. COMPARISON: None available. TECHNIQUE: Four views of the right knee. FINDINGS: Alignment is anatomic. Joint spaces are maintained. No displaced fracture. No abnormal soft tissue calcification. XR/XR knee RT 4V IMPRESSION: No acute abnormality.
== END 2024-01-01 13:53 | disposition home or self-care (01) ==
LOC: HO.HHCX 13:52
PROVIDERS: Visit Provider Internal Medicine
DX: M25.561 Pain in right knee (principal)
CPT/HCPCS: 73564

== ENCOUNTER 2024-01-01 14:23 | Outpatient (REF) | payer OTHER, SELFPAY ==
[2024-01-02 04:39] LABS: Syphilis Screen Nonreactive (Nonreactive)
[2024-01-02 04:41] LABS: HIV AB/AG Nonreactive (Nonreactive); HIV Num 1 0.05 S/CO (0.00-0.99)
[2024-01-02 06:07] LABS: CT PCR NOT DETECTED (Not Detect.); NG PCR NOT DETECTED (Not Detect.)
== END 2024-01-01 14:24 | disposition home or self-care (01) ==
LOC: HO.HHCL 14:23
PROVIDERS: Visit Provider Internal Medicine
DX: Z11.4 Encounter for screening for human immunodeficiency virus [HIV] (principal); R30.0 Dysuria
CPT/HCPCS: 0353U; 36415; 86780; 87389

== ENCOUNTER 2024-01-19 08:39 | Outpatient (REF) | payer OTHER, SELFPAY | END 2024-01-19 08:40 | disposition home or self-care (01) | LOC: HO.HOSX 08:39 | PROVIDERS: Visit Provider Orthopaedic Surgery | DX: Z13.89 Encounter for screening for other disorder (principal) ==